=== PATIENT | male | born 1980 | race Caucasian/White ===

== ENCOUNTER 2016-10-21 17:31 | Emergency (ER) | payer SELFPAY ==
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
[2016-10-21] MEDS ORDERED: HYDROCODONE/ACETAMINOPHEN 5-325 MG 6 TAB/DSPK PO PRN (22:11)
[2016-10-21] MEDS ORDERED: DEXAMETHASONE SOD PHOS INJ 10 MG/1 ML VIAL IM ONE (22:12)
[2016-10-22 00:40] VITALS: BP 129/74
== END 2016-10-21 22:50 | disposition home or self-care (01) ==
LOC: ER 17:31
DX: M54.2 Cervicalgia (principal); M25.551 Pain in right hip; W19.XXXA Unspecified fall, initial encounter; F17.210 Nicotine dependence, cigarettes, uncomplicated
CPT/HCPCS: 99284; 96372; 73502; 72125; J1100

== ENCOUNTER 2017-02-26 12:40 | Emergency (ER) | payer OTHER, MEDICAID ==
[2017-02-26] MEDS ORDERED: ONDANSETRON 4 MG TAB.RAPDIS PO ONE (13:16)
[2017-02-26] MEDS ORDERED: LANSOPRAZOLE 30 MG TAB.RAP.DR PO ONE (13:16)
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
[2017-02-26] MEDS ORDERED: NORMAL SALINE 1000 ML 1,000 ML IV ONE ×2 (13:23→15:27)
[2017-02-26] MEDS ORDERED: OXYCODONE-ACETAMINOPHEN 5-325 MG TABLET PO ONE (13:23)
[2017-02-26 13:56] LABS: ABSOLUTE BASOPHILS # (AUTO) 0.1 10^3/uL (0.0-0.2); ABSOLUTE LYMPHOCYTES (AUTO) 2.1 10^3/uL (0.5-4.7); ABSOLUTE MONOCYTES (AUTO) 1.2 10^3/uL (0.1-1.4); ABSOLUTE NEUT (AUTO) 13.5 10^3/uL (1.7-8.2); BASOPHILS % (AUTO) 0.6 % (0-2); HEMATOCRIT 48.2 % (37.9-51.0); HEMOGLOBIN 16.4 g/dL (13.5-17.0); LYMPHOCYTES % (AUTO) 12.6 % (13-45); MEAN CORPUSCULAR HEMOGLOBIN 31.2 pg (27.0-33.4); MEAN CORPUSCULAR HGB CONC 34.1 g/dL (32.0-36.0); MEAN CORPUSCULAR VOLUME 92 fl (80-97); MONOCYTES % (AUTO) 7.1 % (3-13); RED BLOOD COUNT 5.26 10^6/uL (4.35-5.55); SEGMENTED NEUTROPHILS % (AUTO) 79.7 % (42-78); WHITE BLOOD COUNT 16.9 10^3/uL (4.0-10.5)
[2017-02-26 14:02] LABS: APPEARANCE,URINE SLIGHTLY-CLOUDY; BILIRUBIN,URINE NEGATIVE (NEGATIVE); GLUCOSE, URINE NEGATIVE (NEGATIVE); KETONES,URINE NEGATIVE (NEGATIVE); LEUKOCYTE ESTERASE,URINE NEGATIVE (NEGATIVE); NITRITE,URINE NEGATIVE (NEGATIVE); PROTEIN,URINE 100 mg/dL (NEGATIVE); URINE SPECIFIC GRAVITY 1.032; UROBILINOGEN,URINE NEGATIVE mg/dL (<2.0)
[2017-02-26 14:16] LABS: URINE BARBITURATES SCREEN NEGATIVE; URINE METHADONE SCREEN NEGATIVE; URINE OPIATES LOW NEGATIVE; URINE PHENCYCLIDINE SCREEN NEGATIVE
[2017-02-26 14:16] LABS: ALANINE AMINOTRANSFERASE 38 U/L (21-72); ALBUMIN 5.3 g/dL (3.5-5.0); ALKALINE PHOSPHATASE 76 U/L (38-126); ANION GAP 17 (5-19); ASPARTATE AMINO TRANSFERASE 25 U/L (17-59); BILIRUBIN,DIRECT 0.4 mg/dL (0.0-0.4); BILIRUBIN,TOTAL 1.5 mg/dL (0.2-1.3); BLOOD UREA NITROGEN 17 mg/dL (7-20); CALCIUM 10.6 mg/dL (8.4-10.2); CARBON DIOXIDE 26 mmol/L (22-30); CHLORIDE 100 mmol/L (98-107); CREATININE RESULT 1.16 mg/dL (0.52-1.25); GLUCOSE 130 mg/dL (75-110); LIPASE 263.6 U/L (23-300); POTASSIUM 4.1 mmol/L (3.6-5.0); SODIUM 142.8 mmol/L (137-145); TOTAL PROTEIN 8.5 g/dL (6.3-8.2)
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
[2017-02-26] MEDS ORDERED: CLONIDINE HCL 0.1 MG TABLET PO ONE (15:27)
[2017-02-26 16:08] VITALS: BP 124/64
[2017-02-26] MEDS ORDERED: ONDANSETRON ODT 4 MG TAB (6 TAB/DSPK) PO PRN (16:49)
== END 2017-02-26 17:15 | disposition home or self-care (01) ==
LOC: ER 12:40
DX: F11.23 Opioid dependence with withdrawal (principal); F14.10 Cocaine abuse, uncomplicated; G89.4 Chronic pain syndrome; M54.9 Dorsalgia, unspecified; R11.2 Nausea with vomiting, unspecified; R10.31 Right lower quadrant pain; R10.32 Left lower quadrant pain; J45.909 Unspecified asthma, uncomplicated; Z88.0 Allergy status to penicillin; Z88.2 Allergy status to sulfonamides; Z88.1 Allergy status to other antibiotic agents; Z88.5 Allergy status to narcotic agent; Z88.8 Allergy status to other drugs, medicaments and biological substances; Z87.19 Personal history of other diseases of the digestive system; Z90.49 Acquired absence of other specified parts of digestive tract
CPT/HCPCS: 99284; 36415; 87086; 83690; 85025; 85652; 80053; 81001; 80307; S0119; J7030

== ENCOUNTER 2017-06-03 17:32 | Emergency (ER) | payer MEDICAID, OTHER ==
[2017-06-03] MEDS ORDERED: NORMAL SALINE 1000 ML 1,000 ML IV ONE (18:10)
[2017-06-03] MEDS ORDERED: LORAZEPAM INJ 2 MG/1 ML VIAL IV ONE (18:11)
[2017-06-03] MEDS ORDERED: CLONIDINE HCL 0.2 MG TABLET PO ONE (18:11)
--- NOTE | 2017-06-03 18:13 | ER Document Report ---
ED Medical Screen (RME) - General Chief Complaint: Drug Abuse Stated Complaint: WITHDRAWAL/HEROINE Time Seen by Provider: 06/03/17 18:08 Mode of Arrival: Wheelchair Information source: Patient Notes: 36-year-old male heavy heroin abuser presents with withdrawal symptoms of 24 hours patient admits to sweating body aches Patient here with mobile crisis I have greeted and performed a rapid initial assessment of this patient. A comprehensive ED assessment and evaluation of the patient, analysis of test results and completion of the medical decision making process will be conducted by additional ED providers. PHYSICAL EXAMINATION: GENERAL: Ill-appearing male in mild acute distress HEAD: Atraumatic, normocephalic. EYES: Pupils equal round extraocular movements intact, conjunctiva are normal. ENT: Nares patent NECK: Normal range of motion LUNGS: No respiratory distress Musculoskeletal: Normal range of motion NEUROLOGICAL: Normal speech, normal gait. PSYCH: Tearful and anxious SKIN: Diaphoretic TRAVEL OUTSIDE OF THE [place] IN LAST 30 DAYS: No - Related Data Allergies/Adverse Reactions: naproxen Allergy (Verified 06/03/17 17:55) Penicillins Allergy (Verified 06/03/17 17:55) Sulfa (Sulfonamide Antibiotics) Allergy (Verified 06/03/17 17:55) sulfamethoxazole [From Bactrim] Allergy (Verified 06/03/17 17:55) tramadol HCl [From Ultram] Allergy (Verified 06/03/17 17:55) trimethoprim [From Bactrim] Allergy (Verified 06/03/17 17:55) Past Medical History - Social History Chew tobacco use (# tins/day): No Frequency of alcohol use: None Drug Abuse: Cocaine, Heroin Family history: Hypertension - Past Medical History Cardiac Medical History: Denies: Hx Coronary Artery Disease, Hx Heart Attack, Hx Hypertension Pulmonary Medical History: Reports: Hx Asthma Denies: Hx Bronchitis, Hx COPD, Hx Pneumonia Neurological Medical History: Denies: Hx Cerebrovascular Accident, Hx Seizures Renal/ Medical History: Denies: Hx Peritoneal Dialysis GI Medical History: Reports: Hx Diverticulitis, Hx Gastroesophageal Reflux Disease, Hx Ulcerative Colitis, Hx Colonoscopy, Hx Endoscopy Musculoskeltal Medical History: Reports Hx Arthritis, Reports Hx Musculoskeletal Deformity - Chronic back pain and herniated disc according to the patient, Reports Hx Musculoskeletal Trauma Psychiatric Medical History: Reports: Hx Depression Past Surgical History: Reports: Hx Abdominal Surgery - L inguinal hernia repair , Hx Appendectomy, Hx Inguinal Hernia - Left - Immunizations Immunizations up to date: Yes Hx Diphtheria, Pertussis, Tetanus Vaccination: Yes - 2011 Physical Exam - Vital signs Vitals: Temp Resp BP Pulse Ox 98.4 F 22 H 126/82 H 96 06/03/17 17:59 06/03/17 17:59 06/03/17 17:59 06/03/17 17:59 Course - Vital Signs Vital signs: Temp Pulse Resp BP Pulse Ox 98.4 F 22 H 126/82 H 96 06/03/17 17:59 06/03/17 17:59 06/03/17 17:59 06/03/17 17:59
[2017-06-03 19:00] LABS: ABSOLUTE BASOPHILS # (AUTO) 0.1 10^3/uL (0.0-0.2); ABSOLUTE EOSINOPHILS # (AUTO) 0.1 10^3/uL (0.0-0.6); ABSOLUTE LYMPHOCYTES (AUTO) 2.8 10^3/uL (0.5-4.7); ABSOLUTE MONOCYTES (AUTO) 0.7 10^3/uL (0.1-1.4); ABSOLUTE NEUT (AUTO) 6.8 10^3/uL (1.7-8.2); BASOPHILS % (AUTO) 0.9 % (0-2); EOSINOPHILS % (AUTO) 1.2 % (0-6); HEMATOCRIT 49.5 % (37.9-51.0); HEMOGLOBIN 17.2 g/dL (13.5-17.0); HGB HCT DIFFERENCE 2.1; LYMPHOCYTES % (AUTO) 26.3 % (13-45); MEAN CORPUSCULAR HGB CONC 34.8 g/dL (32.0-36.0); MEAN CORPUSCULAR VOLUME 92 fl (80-97); MONOCYTES % (AUTO) 7.1 % (3-13); RED BLOOD COUNT 5.39 10^6/uL (4.35-5.55); RED CELL DISTRIBUTION WIDTH 13.1 % (11.5-14.0); SEGMENTED NEUTROPHILS % (AUTO) 64.5 % (42-78); WHITE BLOOD COUNT 10.5 10^3/uL (4.0-10.5)
[2017-06-03 19:03] LABS: APPEARANCE,URINE SLIGHTLY-CLOUDY; BILIRUBIN,URINE NEGATIVE (NEGATIVE); GLUCOSE, URINE NEGATIVE (NEGATIVE); KETONES,URINE NEGATIVE (NEGATIVE); LEUKOCYTE ESTERASE,URINE NEGATIVE (NEGATIVE); NITRITE,URINE NEGATIVE (NEGATIVE); PROTEIN,URINE NEGATIVE (NEGATIVE); URINE SPECIFIC GRAVITY 1.026; UROBILINOGEN,URINE NEGATIVE mg/dL (<2.0)
[2017-06-03 19:17] LABS: ALANINE AMINOTRANSFERASE 40 U/L (21-72); ALBUMIN 5.3 g/dL (3.5-5.0); ALKALINE PHOSPHATASE 82 U/L (38-126); ANION GAP 18 (5-19); ASPARTATE AMINO TRANSFERASE 34 U/L (17-59); BILIRUBIN,DIRECT 0.4 mg/dL (0.0-0.4); BILIRUBIN,TOTAL 1.1 mg/dL (0.2-1.3); BLOOD UREA NITROGEN 12 mg/dL (7-20); CALCIUM 10.3 mg/dL (8.4-10.2); CARBON DIOXIDE 25 mmol/L (22-30); CHLORIDE 101 mmol/L (98-107); GLUCOSE 91 mg/dL (75-110); POTASSIUM 3.8 mmol/L (3.6-5.0); SODIUM 143.8 mmol/L (137-145); TOTAL PROTEIN 9.1 g/dL (6.3-8.2)
[2017-06-03 19:18] LABS: ALCOHOL < 10 mg/dL (NONE DETECTED)
[2017-06-03] MEDS ORDERED: GABAPENTIN 300 MG CAPSULE PO ONE (19:20)
--- NOTE | 2017-06-03 19:23 | ER Document Report ---
ED General - General Chief Complaint: Drug Abuse Stated Complaint: WITHDRAWAL/HEROINE Time Seen by Provider: 06/03/17 18:08 Mode of Arrival: Wheelchair Notes: Patient is a 36-year-old male with past medical history of polysubstance abuse who presents requesting assistance with coming off heroin. States his last year was 24 hours ago. He presents complaining of diffuse body pain, abdominal pain, nausea, vomiting and tremulousness. Nothing improves or worsens his symptoms. States he has never gone through heroin withdrawal in the past to this degree of severity. He has not seen his primary care doctor regarding today's concerns. He came to the emergency department because he was afraid that he would use heroin if he did not get help due to the severity of his withdrawal symptoms. TRAVEL OUTSIDE OF THE [place] IN LAST 30 DAYS: No - Related Data Allergies/Adverse Reactions: naproxen Allergy (Verified 06/03/17 17:55) Penicillins Allergy (Verified 06/03/17 17:55) Sulfa (Sulfonamide Antibiotics) Allergy (Verified 06/03/17 17:55) sulfamethoxazole [From Bactrim] Allergy (Verified 06/03/17 17:55) tramadol HCl [From Ultram] Allergy (Verified 06/03/17 17:55) trimethoprim [From Bactrim] Allergy (Verified 06/03/17 17:55) Past Medical History - General Information source: Patient - Social History Smoking Status: Current Every Day Smoker Chew tobacco use (# tins/day): No Frequency of alcohol use: None Drug Abuse: Cocaine, Heroin Family History: Reviewed & Not Pertinent Patient has suicidal ideation: No Patient has homicidal ideation: No - Past Medical History Cardiac Medical History: Denies: Hx Coronary Artery Disease, Hx Heart Attack, Hx Hypertension Pulmonary Medical History: Reports: Hx Asthma Denies: Hx Bronchitis, Hx COPD, Hx Pneumonia Neurological Medical History: Denies: Hx Cerebrovascular Accident, Hx Seizures Renal/ Medical History: Denies: Hx Peritoneal Dialysis GI Medical History: Reports: Hx Diverticulitis, Hx Gastroesophageal Reflux Disease, Hx Ulcerative Colitis, Hx Colonoscopy, Hx Endoscopy Musculoskeltal Medical History: Reports Hx Arthritis, Reports Hx Musculoskeletal Deformity - Chronic back pain and herniated disc according to the patient, Reports Hx Musculoskeletal Trauma Psychiatric Medical History: Reports: Hx Depression Past Surgical History: Reports: Hx Abdominal Surgery - L inguinal hernia repair , Hx Appendectomy, Hx Inguinal Hernia - Left - Immunizations Immunizations up to date: Yes Hx Diphtheria, Pertussis, Tetanus Vaccination: Yes - 2011 Review of Systems - Review of Systems Notes: Constitutional: Negative for fever. HENT: Negative for sore throat. Eyes: Negative for visual changes. Cardiovascular: Negative for chest pain. Respiratory: Negative for shortness of breath. Gastrointestinal: Positive for abdominal pain and vomiting Genitourinary: Negative for dysuria. Musculoskeletal: Negative for back pain. Skin: Negative for rash. Neurological: Negative for headaches, weakness or numbness. 10 point ROS negative except as marked above and in HPI. Physical Exam - Vital signs Vitals: Temp Resp BP Pulse Ox 98.4 F 22 H 126/82 H 96 06/03/17 17:59 06/03/17 17:59 06/03/17 17:59 06/03/17 17:59 Interpretation: Normal Notes: PHYSICAL EXAMINATION: GENERAL: Appears uncomfortable but no acute distress HEAD: Atraumatic, normocephalic. EYES: Pupils equal round and reactive to light, extraocular movements intact, sclera anicteric, conjunctiva are normal. ENT: nares patent, oropharynx clear without exudates. Moist mucous membranes. NECK: Normal range of motion, supple without lymphadenopathy LUNGS: Breath sounds clear to auscultation bilaterally and equal. No wheezes rales or rhonchi. HEART: Regular rate and rhythm without murmurs ABDOMEN: Soft, nontender, normoactive bowel sounds. No guarding, no rebound. No masses appreciated. EXTREMITIES: Normal range of motion, no pitting or edema. No cyanosis. NEUROLOGICAL: No focal neurological deficits. Moves all extremities spontaneously and on command. PSYCH: Anxious SKIN: Warm, Dry, normal turgor, no rashes or lesions noted. Course - Re-evaluation Re-evalutation: 06/03/17 19:20 Patient presents 24 hours after his last use of heroin in acute withdrawals. His withdrawal profile is clinically consistent with this history as he reports nausea, vomiting, abdominal cramping, diffuse body pain, flulike symptoms and confusion. Patient does admit to suicidal ideation without a specific plan but states "if you let me go I know I am going to go ". Denies any prior psychiatric history or attempts of suicide. However, given patient's report that he seriously believes that he may do something to harm himself if he is discharged due to his withdrawal profile, I will keep him here in the emergency department although not under involuntary commitment as he has no specific plan and waffles on whether or not he is truly suicidal. I will provide clonidine, gabapentin, and Zofran for withdrawal. I have explicitly informed this patient that he will not receive narcotics for his withdrawals while he is here in the emergency department. - Vital Signs Vital signs: Temp Pulse Resp BP Pulse Ox 98.4 F 22 H 126/82 H 96 06/03/17 17:59 06/03/17 17:59 06/03/17 17:59 06/03/17 17:59 - Laboratory Result Diagrams: 06/03/17 18:40 06/03/17 18:40 Laboratory results interpreted by me: 06/03/17 06/03/17 18:40 18:40 Hgb 17.2 H Calcium 10.3 H Total Protein 9.1 H Albumin 5.3 H Salicylates < 1.0 L Acetaminophen < 10 L - EKG Interpretation by Me Additional EKG results interpreted by me: 06/04/17 03:40 Normal sinus rhythm. Rate 76. No ST elevations or depressions. QTC is 437. Discharge - Discharge Clinical Impression: Opiate withdrawal, Suicidal ideation Condition: Fair Disposition: PSYCH HOSP/UNIT Referrals: TAM TORRES MD [Primary Care Provider] - Follow up as needed
[2017-06-03 19:24] LABS: URINE BARBITURATES SCREEN NEGATIVE; URINE METHADONE SCREEN NEGATIVE; URINE OPIATES LOW UNCONFIRMED POSITIVE; URINE PHENCYCLIDINE SCREEN NEGATIVE
--- NOTE | 2017-06-04 08:13 | EKG REPORT ---
SEVERITY:- NORMAL ECG - SINUS RHYTHM : Confirmed by: Gordon Posadas MD 04-Jun-2017 08:12:34
[2017-06-04] MEDS ORDERED: NICOTINE 21 MG/24 HR PATCH.TD24 TD SCH (10:15)
[2017-06-04] MEDS ORDERED: ONDANSETRON HCL INJ/PF 4 MG/2 ML SDV IV ONE (10:44)
[2017-06-04] MEDS ORDERED: KETOROLAC TROMETHAMINE INJ/PF 30 MG/1 ML SDV IV ONE (10:44)
[2017-06-04] MEDS ORDERED: NORMAL SALINE 1000 ML 1,000 ML IV PRN ×2 (10:44→12:11)
[2017-06-04] MEDS ORDERED: NICOTINE 21 MG/24 HR PATCH.TD24 TD ONE (11:00)
--- NOTE | 2017-06-04 11:15 | ER Document Report ---
Doctor's Note Notes: 06/04/17 11:14 Patient is resting on stretcher, reports feeling severe abdominal and diffuse body cramps at this point in time as well as nausea, typical symptoms of withdrawal from opiates, he is requesting nonnarcotic medications to alleviate symptoms, he is also requesting to be able to outside for a walk, since patient is a voluntary here, I did arrange for "environmental therapy", once he returns back to the building from his walk, we will place an IV and give him IV fluids, Zofran and Toradol in hopes to alleviate some of his withdrawal symptoms, his 2 sisters are at bedside who appear to be quite supportive of assisting him with opiate detox and withdrawal
[2017-06-04] MEDS ORDERED: METOCLOPRAMIDE HCL INJ/PF 10 MG/2 ML SDV IV ONE ×2 (12:11→15:23)
[2017-06-04] MEDS ORDERED: CLONIDINE HCL 0.1 MG TABLET PO ONE (12:11)
[2017-06-04] MEDS ORDERED: DIPHENHYDRAMINE HCL 50 MG/ML VIAL IV ONE ×2 (12:11→15:23)
--- NOTE | 2017-06-04 15:05 | ER Document Report ---
ED Psych Disorder / Suicide - General Mode of Arrival: Wheelchair Information source: Patient TRAVEL OUTSIDE OF THE [place] IN LAST 30 DAYS: No <ADONAY ELLIOTT - Last Filed: 06/04/17 14:57> <MEENA KAUFMAN - Last Filed: 06/05/17 09:33> - General Chief Complaint: Drug Abuse Stated Complaint: WITHDRAWAL/HEROINE Time Seen by Provider: 06/03/17 18:08 - HPI Notes: Patient is a 36-year-old male with past medical history of polysubstance abuse who presents requesting assistance with coming off heroin. States his last year was 24 hours ago. He came to the emergency department because he was afraid that he would use heroin if he did not get help due to the severity of his withdrawal symptoms. Patient disclosed that he needs assistance in finding placement for detox. He disclosed that he uses heroin. He continued to state that he will if he has to stay at [facility] because [facility] does not prescribe Suboxone and he needs something to help with the pain. Patient is alert and orientated to person, place, time and circumstance. Mood is dysphoric with flat affect. Patient is currently demonstrating symptoms of withdrawal i.e. vomiting. Patient denies homicidal and suicidal ideation. Delusions were absent and behavior is congruent with an intact reality based presentation (i.e. organized linear rational thinking). Eye contact was well- maintained. Intellectual abilities appear to be within the average range. Attention and concentration were fair. Insight, judgment, impulse control appear to be historically poor due to polysubstance abuse. Polysubstance abuse per history provided by patient Impression\\plan: Patient is considered psychiatrically clear for discharge. Patient does not meet IVC criteria per [place] GS 122C. Patient denies suicidal and homicidal ideation. Delusions were absent and behavior is congruent with an intact reality based presentation (i.e. organized, linear, rational thinking). [facility] and is working with patient for placement for substance abuse treatment; they will pick him up from [facility] ED upon discharge.Dr. Kaufman was consulted on the care and management of this patient; attending physician is in agreement with recommendations and disposition. ( ADONAY ELLIOTT) 2nd sentence of narrative should read "States his last use was 24 hours ago." ( MEENA KAUFMAN) - Related Data Allergies/Adverse Reactions: naproxen Allergy (Verified 06/03/17 17:55) Penicillins Allergy (Verified 06/03/17 17:55) Sulfa (Sulfonamide Antibiotics) Allergy (Verified 06/03/17 17:55) sulfamethoxazole [From Bactrim] Allergy (Verified 06/03/17 17:55) tramadol HCl [From Ultram] Allergy (Verified 06/03/17 17:55) trimethoprim [From Bactrim] Allergy (Verified 06/03/17 17:55) Home Medications: Current Home Medications Oxycodone HCl/Acetaminophen [Percocet 10-325 Mg Tablet] 1 tab PO Q6HP PRN [History] Past Medical History - General Information source: Patient - Social History Smoking Status: Current Every Day Smoker Chew tobacco use (# tins/day): No Frequency of alcohol use: None Drug Abuse: Cocaine, Heroin Family History: Reviewed & Not Pertinent Patient has suicidal ideation: No Patient has homicidal ideation: No - Past Medical History Cardiac Medical History: Denies: Hx Coronary Artery Disease, Hx Heart Attack, Hx Hypertension Pulmonary Medical History: Reports: Hx Asthma Denies: Hx Bronchitis, Hx COPD, Hx Pneumonia Neurological Medical History: Denies: Hx Cerebrovascular Accident, Hx Seizures Renal/ Medical History: Denies: Hx Peritoneal Dialysis GI Medical History: Reports: Hx Diverticulitis, Hx Gastroesophageal Reflux Disease, Hx Ulcerative Colitis, Hx Colonoscopy, Hx Endoscopy Musculoskeltal Medical History: Reports Hx Arthritis, Reports Hx Musculoskeletal Deformity - Chronic back pain and herniated disc according to the patient, Reports Hx Musculoskeletal Trauma Psychiatric Medical History: Reports: Hx Depression Past Surgical History: Reports: Hx Abdominal Surgery - L inguinal hernia repair , Hx Appendectomy, Hx Inguinal Hernia - Left - Immunizations Immunizations up to date: Yes Hx Diphtheria, Pertussis, Tetanus Vaccination: Yes - 2011 <ADONAY ELLIOTT - Last Filed: 06/04/17 14:57> - Vital signs Vitals: Temp Resp BP Pulse Ox 98.4 F 22 H 126/82 H 96 06/03/17 17:59 06/03/17 17:59 06/03/17 17:59 06/03/17 17:59 Course - Laboratory Result Diagrams: 06/03/17 18:40 06/03/17 18:40 <ADONAY ELLIOTT - Last Filed: 06/04/17 14:57> - Laboratory Result Diagrams: 06/03/17 18:40 06/03/17 18:40 <MEENA KAUFMAN - Last Filed: 06/05/17 09:33> - Vital Signs Vital signs: Temp Pulse Resp BP Pulse Ox 98 F 50 L 16 154/75 H 98 06/04/17 15:15 06/04/17 15:15 06/04/17 15:15 06/04/17 16:00 06/04/17 15:15 - Laboratory Laboratory results interpreted by me: 06/03/17 06/03/17 18:40 18:40 Hgb 17.2 H Calcium 10.3 H Total Protein 9.1 H Albumin 5.3 H Salicylates < 1.0 L Acetaminophen < 10 L Discharge <ADONAY ELLIOTT - Last Filed: 06/04/17 14:57> <MEENA KAUFMAN - Last Filed: 06/05/17 09:33> - Discharge Clinical Impression: Opiate withdrawal Clinical Impression: (Ruled Out): Suicidal ideation Condition: Stable Disposition: HOME, SELF-CARE Additional Instructions: COCAINE ABUSE: Cocaine causes many dangerous medical problems. Problems can occur even with "usual" amounts. Cocaine affects judgement, creating a sense of invulnerability. Cocaine users often make bad decisions that seem "great" at the time. Most cocaine users eventually will be hurt by bad job performance, damaged personal relations, crime, and unsafe sexual practices. Toxic effects of cocaine can include seizures, hallucinations, delusions, high blood pressure, heart damage, or sudden . There's always the risk of a "bad batch." But heart attacks, brain hemorrhages, or cardiac arrest can occur unpredictably even with "normal" use. Injection of cocaine is risky for abscesses, endocarditis (heart infection) , pneumonia, and AIDS. Withdrawal from cocaine often causes anxiety and drug cravings. Some users become paranoid and psychotic. Many treatment programs are available, but you must make the decision to quit. Medication can be prescribed to control the symptoms of cocaine toxicity (beta blockers or benzodiazepines). Withdrawal symptoms may require tranquilizers. NARCOTIC / OPIOD ABUSE: Narcotics and opiods are pain-relieving drugs that are often abused. They are addicting. Narcotics cause euphoria, but it often takes increasing amounts to "feel good" and avoid withdrawal symptoms. Overdose of narcotics causes small pupils, coma, and decreased breathing. It's a common cause of . Purity of street narcotics is unpredictable. Injection of narcotics is risky for abscesses, endocarditis (heart infection), pneumonia, and AIDS. Withdrawal from narcotics causes goose bumps, watery mouth, sweating, nasal congestion, muscle aches, abdominal cramps, vomiting, and diarrhea. There 's often restlessness and confusion. Treatment programs are available, but you must make the decision to quit. Medication (such as clonidine) can be prescribed to control the symptoms of withdrawal. AMPHETAMINE / METHAMPHETAMINE ABUSE: Amphetamines are addicting stimulants. Amphetamines overstimulate the nervous system and give a false feeling of power and mastery. These drugs may be obtained as prescription pills for weight loss, narcolepsy, or attention- deficit disorder. More often they're bought as an illegal street drug, methamphetamine (crank, crystal, speed). Using amphetamines repeatedly can lead to serious medical problems including malnutrition, severe depression, and paranoia. It can take increasing amounts to feel good. Eventually, there will be a "burn out." When you go off amphetamines there is a period of depression that may last for weeks or even months. High doses of amphetamines can cause seizures, confusion, hallucinations, delusions, high blood pressure, muscle damage, heart damage, or sudden . Many times these deadly complications occur even with "normal" doses. Injection of amphetamines is risky for developing abscesses, endocarditis ( heart infection), pneumonia, and AIDS. Withdrawal from amphetamines often causes anxiety, depression, and drug cravings. Some users become paranoid and psychotic. There may be cramps, nausea , and vomiting. Many treatment programs are available, but you must make the decision to quit. Medication can be prescribed to control the symptoms of amphetamine toxicity (beta blockers or benzodiazepines). Withdrawal symptoms may require tranquilizers. FOLLOW-UP CARE: Please [facility] with [facility] for your [facility] abuse treatment upon discharge. If you experience worsening or a significant change in your symptoms, notify the physician immediately or return to the Emergency Department at any time for re-evaluation. Referrals: TAM TORRES MD [Primary Care Provider] - Follow up as needed [facility] [Outside] - 06/04/17
[2017-06-04] MEDS ORDERED: ONDANSETRON 4 MG TAB.RAPDIS SL ONE (15:21)
[2017-06-04 16:00] VITALS: BP 154/75
[2017-06-05] MEDS ORDERED: NICOTINE 21 MG/24 HR PATCH.TD24 TD SCH (10:00)
== END 2017-06-04 16:05 | disposition home or self-care (01) ==
LOC: ER 17:32
DX: F11.23 Opioid dependence with withdrawal (principal); M79.1 Myalgia; R11.0 Nausea; R61 Generalized hyperhidrosis; R45.851 Suicidal ideations; F17.200 Nicotine dependence, unspecified, uncomplicated; Z88.0 Allergy status to penicillin; Z88.2 Allergy status to sulfonamides
CPT/HCPCS: 93005; 99285; 96361; 96374; 36415; 80307 ×4; 85025; 80053; 81001; 93010; J1200; S0119; J1885; J2765; J2060; J2405; J7030 ×2

== ENCOUNTER 2017-07-28 12:54 | Emergency (ER) | payer MEDICAID, OTHER ==
[2017-07-28 13:18] VITALS: BP 133/79
[2017-07-28] MEDS ORDERED: DOXYCYCLINE HYCLATE 100 MG TABLET PO ONE (14:39)
--- NOTE | 2017-07-28 14:44 | ER Document Report ---
ED Skin Rash/Insect Bite/Abscs - General Chief Complaint: Abscess Stated Complaint: GROIN PAIN Time Seen by Provider: 07/28/17 14:27 Mode of Arrival: Ambulatory Information source: Patient Notes: 36-year-old male presents to ED for complaint of abscess on his left testicle. He has a history of abscess but denies any history of MRSA. He states he has felt this abscess for about 3-4 days. States he usually soaks in Epsom salt but this time it did not come to ahead. TRAVEL OUTSIDE OF THE [place] IN LAST 30 DAYS: No - HPI Patient complains to provider of: Tender/swollen area Onset: Other - 4 days Onset/Duration: Gradual Quality of pain: Sharp Severity: Moderate Pain Level: 4 Skin Character: Abscess Quality of rash: Painful Identify cause: No Exacerbated by: Movement Relieved by: Denies Similar symptoms previously: Yes Recently seen / treated by doctor: No - Related Data Allergies/Adverse Reactions: naproxen Allergy (Verified 06/03/17 17:55) Penicillins Allergy (Verified 06/03/17 17:55) Sulfa (Sulfonamide Antibiotics) Allergy (Verified 06/03/17 17:55) sulfamethoxazole [From Bactrim] Allergy (Verified 06/03/17 17:55) tramadol HCl [From Ultram] Allergy (Verified 06/03/17 17:55) trimethoprim [From Bactrim] Allergy (Verified 06/03/17 17:55) Past Medical History - General Information source: Patient - Social History Smoking Status: Current Every Day Smoker Cigarette use (# per day): Yes - Pack per day Chew tobacco use (# tins/day): No Smoking Education Provided: Yes - Less than 2 minutes Frequency of alcohol use: None Drug Abuse: None Occupation: Unemployed Family History: Arthritis, CAD, DM, Hyperlipidemia, Hypertension, Malignancy. denies: COPD, CVA, Thyroid Disfunction Patient has suicidal ideation: No Patient has homicidal ideation: No - Past Medical History Cardiac Medical History: Reports: None Pulmonary Medical History: Reports: Hx Asthma EENT Medical History: Reports: None Neurological Medical History: Reports: None Endocrine Medical History: Reports: None Renal/ Medical History: Reports: None Malignancy Medical History: Reports None GI Medical History: Reports: Hx Diverticulitis, Hx Gastroesophageal Reflux Disease, Hx Ulcerative Colitis, Hx Colonoscopy, Hx Endoscopy Musculoskeltal Medical History: Reports Hx Arthritis, Reports Hx Musculoskeletal Deformity - Chronic back pain and herniated disc according to the patient, Reports Hx Musculoskeletal Trauma Skin Medical History: Reports None Psychiatric Medical History: Reports: Hx Depression Traumatic Medical History: Reports: None Infectious Medical History: Reports: None Past Surgical History: Reports: Hx Appendectomy, Hx Inguinal Hernia - Left - Immunizations Immunizations up to date: Yes Hx Diphtheria, Pertussis, Tetanus Vaccination: Yes - 2011 Review of Systems - Review of Systems Constitutional: No symptoms reported EENT: No symptoms reported Cardiovascular: No symptoms reported Respiratory: No symptoms reported Gastrointestinal: No symptoms reported Genitourinary: No symptoms reported Male Genitourinary: No symptoms reported Musculoskeletal: No symptoms reported Skin: Other - Abscess left groin Hematologic/Lymphatic: No symptoms reported Neurological/Psychological: No symptoms reported -: Yes All other systems reviewed and negative Physical Exam - Vital signs Vitals: Temp Pulse Resp BP Pulse Ox 98.0 F 60 18 133/79 H 100 07/28/17 13:16 07/28/17 13:16 07/28/17 13:16 07/28/17 13:16 07/28/17 13:16 Interpretation: Normal - General General appearance: Appears well, Alert - HEENT Head: Normocephalic, Atraumatic Eyes: Normal Pupils: PERRL - Respiratory Respiratory status: No respiratory distress Chest status: Nontender Breath sounds: Normal Chest palpation: Normal - Cardiovascular Rhythm: Regular Heart sounds: Normal auscultation Murmur: No - Abdominal Inspection: Normal Distension: No distension Bowel sounds: Normal Tenderness: Nontender Organomegaly: No organomegaly - Genitourinary Tenderness: Other - Abscess left testicle/groin Cremasteric reflex: Normal Scrotum: Normal - Back Back: Normal, Nontender - Extremities General upper extremity: Normal inspection, Nontender, Normal color, Normal ROM , Normal temperature General lower extremity: Normal inspection, Nontender, Normal color, Normal ROM , Normal temperature, Normal weight bearing. No: Leti's sign - Neurological Neuro grossly intact: Yes Cognition: Normal Orientation: AAOx4 Angus Coma Scale Eye Opening: Spontaneous Angus Coma Scale Verbal: Oriented Angus Coma Scale Motor: Obeys Commands Angus Coma Scale Total: 15 Speech: Normal Motor strength normal: LUE, RUE, LLE, RLE Sensory: Normal - Psychological Associated symptoms: Normal affect, Normal mood - Skin Skin Temperature: Warm Skin Moisture: Dry Skin Color: Normal Skin irregularity: Abscess Location of irregularity: Other - Left groin/testicle Irregularity with: Swelling, Tenderness Course - Vital Signs Vital signs: Temp Pulse Resp BP Pulse Ox 98.0 F 60 18 133/79 H 100 07/28/17 13:16 07/28/17 13:16 07/28/17 13:16 07/28/17 13:16 07/28/17 13:16 Procedures - Incision and Drainage Left Groin Time completed: 14:45 Type: Simple Anesthetic type: Other - None mL's of anesthetic: 0 Blade size: Other - 18-gauge needle I&D procedure: Betadine prep applied, Sterile dressing applied Incision Method: Incision made with needle Amount/type of drainage: Moderate amount of purulent drainage Discharge - Discharge Clinical Impression: Abscess Condition: Stable Disposition: HOME, SELF-CARE Instructions: Family Physicians / Practices Additional Instructions: ABSCESS: You have an abscess (boil). This a pus-forming infection, usually due to staph. Some boils may be left to drain on their own, but most require lancing. From the time the tender lump first appears, it may be three or four days before the abscess is ready to frank. Local heat and rest help at this stage of treatment. An antibiotic may prevent spread of the infection. Once the abscess is opened, packing may be placed into it. This is done so pus is not sealed inside by premature closure of the cavity. The packing will be removed at your follow-up visit or you may be advised to remove it yourself at home. Sometimes this packing must be replaced a few times during healing. The wound will heal with surprisingly little scar. Depending on the size and location of an abscess, healing can take one to four weeks. You may shower and wash the area around the incision site two or three times a day. Antibiotics may be prescribed, but are usually not necessary after an abscess has been drained. If you develop fever, chills, worsening pain, or increasing swelling in the area, call the doctor or return immediately. POST INCISION AND DRAINAGE: You have had an incision made to allow drainage of an abscess. The incision must remain open so that pus and debris can drain from the wound. If the abscess cavity is large, packing is placed. This keeps the tissues from collapsing and trapping pus inside, while the body shrinks the cavity. The packing may need to be replaced every day or two. The physician will instruct you on the packing. Keep a bulky dressing over the area. Replace it if it becomes saturated with blood or pus. Do not disturb the packing (if present). You may shower and cleanse the area with gentle soap and warm water two or three times a day. Local warmth may be soothing, and may promote faster healing. Return if you develop high fever or chills, or if you note spreading redness, increasing swelling, or increasing tenderness. DOXYCYCLINE: Doxycycline (Vibramycin, Doryx) is an antibiotic of the tetracycline family. This type of drug is useful for infections of the respiratory tract and genital tract, and is sometimes used for intestinal infections. Unlike most tetracyclines, doxycycline can be taken with food. It is longer acting, and (usually) less prone to side effects than regular tetracycline. Tetracycline antibiotics can stain immature teeth and SHOULD NOT BE TAKEN BY CHILDREN, NURSING MOTHERS, OR WOMEN. Tetracyclines can make you more prone to sunburn. Abdominal cramping, nausea, and diarrhea are occasional side effects. Women may experience vaginal yeast infections. Call the doctor at once if you develop hives, itching, shortness of breath , or lightheadedness. Epsom Salt Soaks Soak the wound area in a container of warm epsom salt water. If you can't get the wound area into a bucket or [place], use a folded towel soaked in the epsom salt solution and apply to the area. Use clean hot tap water (about the temperature of a very warm bath), mixing in about one (1) teaspoon for every pint of water. Two gallon --> 16 teaspoons Epsom Salts One gallon --> 8 teaspoons Epsom Salts Two quarts --> 4 teaspoons Epsom Salts One quart --> 2 teaspoons Epsom Salts Soak the wound for about 20 minutes while gently moving it around in the water. Repeat this four (4) times a day. FOLLOW-UP CARE: Most simple abscesses will not require a follow up visit. If you had packing placed in the abscess, remove it as instructed by the physician. If you have been referred to a physician for follow-up care, call the physicians office for an appointment as you were instructed or within the next two days. If you experience worsening or a significant change in your symptoms, return to the Emergency Department at any time for re-evaluation. Prescriptions: Doxycycline Hyclate 100 mg PO BID #20 tablet Forms: Elevated Blood Pressure, Smoking Cessation Education
== END 2017-07-28 14:57 | disposition home or self-care (01) ==
LOC: ER 12:54
PROC: 0H9AXZZ Drainage of Inguinal Skin, External Approach (ICD-10-PCS; principal; 2017-07-28)
DX: L02.214 Cutaneous abscess of groin (principal); F17.210 Nicotine dependence, cigarettes, uncomplicated; Z88.8 Allergy status to other drugs, medicaments and biological substances; Z88.0 Allergy status to penicillin; Z88.2 Allergy status to sulfonamides; Z88.1 Allergy status to other antibiotic agents; Z88.5 Allergy status to narcotic agent; Z71.6 Tobacco abuse counseling
CPT/HCPCS: 87070; 87186; 87205; 99283

== ENCOUNTER 2017-08-13 11:46 | Emergency (ER) | payer SELFPAY ==
[2017-08-13] MEDS ORDERED: ONDANSETRON HCL INJ/PF 4 MG/2 ML SDV IV ONE ×2 (12:19→14:20)
[2017-08-13] MEDS ORDERED: NORMAL SALINE 1000 ML 1,000 ML IV ONE (12:19)
[2017-08-13] MEDS ORDERED: MORPHINE SULFATE 10 MG/ML INJ IV ONE (12:20)
--- NOTE | 2017-08-13 12:21 | ER Document Report ---
ED Medical Screen (RME) - General Chief Complaint: Abdominal Pain Stated Complaint: ABDOMINAL PAIN Time Seen by Provider: 08/13/17 12:18 Notes: Patient presents with severe abdominal pain nausea vomiting, diarrhea. He states he has a history of ulcerative colitis. He states he normally gets Dilaudid for the pain. TRAVEL OUTSIDE OF THE [place] IN LAST 30 DAYS: No - Related Data Allergies/Adverse Reactions: naproxen Allergy (Verified 08/13/17 11:52) Penicillins Allergy (Verified 08/13/17 11:52) Sulfa (Sulfonamide Antibiotics) Allergy (Verified 08/13/17 11:52) sulfamethoxazole [From Bactrim] Allergy (Verified 08/13/17 11:52) tramadol HCl [From Ultram] Allergy (Verified 08/13/17 11:52) trimethoprim [From Bactrim] Allergy (Verified 08/13/17 11:52) Past Medical History - Social History Chew tobacco use (# tins/day): No Frequency of alcohol use: Rare Drug Abuse: Marijuana Family history: Hypertension - Past Medical History Cardiac Medical History: Denies: Hx Coronary Artery Disease, Hx Heart Attack, Hx Hypertension Pulmonary Medical History: Reports: Hx Asthma Denies: Hx Bronchitis, Hx COPD, Hx Pneumonia Neurological Medical History: Denies: Hx Cerebrovascular Accident, Hx Seizures Renal/ Medical History: Denies: Hx Peritoneal Dialysis GI Medical History: Reports: Hx Diverticulitis, Hx Gastroesophageal Reflux Disease, Hx Ulcerative Colitis, Hx Colonoscopy, Hx Endoscopy Musculoskeltal Medical History: Reports Hx Arthritis, Reports Hx Musculoskeletal Deformity - Chronic back pain and herniated disc according to the patient, Reports Hx Musculoskeletal Trauma Psychiatric Medical History: Reports: Hx Depression Past Surgical History: Reports: Hx Abdominal Surgery - L inguinal hernia repair , Hx Appendectomy, Hx Inguinal Hernia - Left - Immunizations Immunizations up to date: Yes Hx Diphtheria, Pertussis, Tetanus Vaccination: Yes - 2011 Physical Exam - Vital signs Vitals: Temp Pulse Resp BP Pulse Ox 98.9 F 47 L 18 148/62 H 99 08/13/17 11:54 08/13/17 11:54 08/13/17 11:54 08/13/17 11:54 08/13/17 11:54 Course - Vital Signs Vital signs: Temp Pulse Resp BP Pulse Ox 98.9 F 47 L 18 148/62 H 99 08/13/17 11:54 08/13/17 11:54 08/13/17 11:54 08/13/17 11:54 08/13/17 11:54
[2017-08-13] MEDS ORDERED: DIPHENHYDRAMINE HCL 50 MG/ML VIAL IV ONE (13:07)
[2017-08-13 13:16] LABS: ABSOLUTE BASOPHILS # (AUTO) 0.1 10^3/uL (0.0-0.2); ABSOLUTE LYMPHOCYTES (AUTO) 1.4 10^3/uL (0.5-4.7); ABSOLUTE MONOCYTES (AUTO) 0.4 10^3/uL (0.1-1.4); ABSOLUTE NEUT (AUTO) 9.2 10^3/uL (1.7-8.2); BASOPHILS % (AUTO) 0.7 % (0-2); EOSINOPHILS % (AUTO) 0.1 % (0-6); HEMATOCRIT 50.6 % (37.9-51.0); HEMOGLOBIN 17.5 g/dL (13.5-17.0); HGB HCT DIFFERENCE 1.9; LYMPHOCYTES % (AUTO) 12.7 % (13-45); MEAN CORPUSCULAR HEMOGLOBIN 31.6 pg (27.0-33.4); MEAN CORPUSCULAR HGB CONC 34.6 g/dL (32.0-36.0); MEAN CORPUSCULAR VOLUME 91 fl (80-97); MONOCYTES % (AUTO) 3.6 % (3-13); RED BLOOD COUNT 5.55 10^6/uL (4.35-5.55); RED CELL DISTRIBUTION WIDTH 14.5 % (11.5-14.0); SEGMENTED NEUTROPHILS % (AUTO) 82.9 % (42-78)
[2017-08-13 13:31] LABS: AMORPHOUS SEDIMENT,URINE 2+ /HPF; APPEARANCE,URINE TURBID; BILIRUBIN,URINE NEGATIVE (NEGATIVE); GLUCOSE, URINE NEGATIVE (NEGATIVE); KETONES,URINE 20 mg/dL (NEGATIVE); LEUKOCYTE ESTERASE,URINE NEGATIVE (NEGATIVE); NITRITE,URINE NEGATIVE (NEGATIVE); PROTEIN,URINE 30 mg/dL (NEGATIVE); URINE SPECIFIC GRAVITY 1.027
[2017-08-13 13:43] LABS: ALANINE AMINOTRANSFERASE 853 U/L (21-72); ALKALINE PHOSPHATASE 216 U/L (38-126); ANION GAP 15 (5-19); ASPARTATE AMINO TRANSFERASE 558 U/L (17-59); BILIRUBIN,DIRECT 1.7 mg/dL (0.0-0.4); BILIRUBIN,TOTAL 3.1 mg/dL (0.2-1.3); BLOOD UREA NITROGEN 13 mg/dL (7-20); CALCIUM 9.9 mg/dL (8.4-10.2); CARBON DIOXIDE 26 mmol/L (22-30); CHLORIDE 104 mmol/L (98-107); CREATININE RESULT 1.05 mg/dL (0.52-1.25); GLUCOSE 131 mg/dL (75-110); LIPASE 167.4 U/L (23-300); POTASSIUM 4.8 mmol/L (3.6-5.0); SODIUM 145.3 mmol/L (137-145); TOTAL PROTEIN 8.8 g/dL (6.3-8.2)
--- NOTE | 2017-08-13 13:43 | ER Document Report ---
Doctor's Note Notes: 08/13/17 13:42 While transferring of another patient notified by nursing staff patient look to be having allergic reaction to morphine. States the patient had redness of his arm therefore a dose of IV Benadryl was ordered. This was given by nursing staff. Later was able to evaluate the patient resting comfortably. No signs of allergic reaction anaphylaxis seen otherwise stable
[2017-08-13] MEDS ORDERED: HYDROMORPHONE HCL INJ/PF 2 MG/ML AMPULE IV ONE ×2 (14:20→17:54)
--- NOTE | 2017-08-13 14:26 | ER Document Report ---
ED GI/ - General Chief Complaint: Abdominal Pain Stated Complaint: ABDOMINAL PAIN Time Seen by Provider: 08/13/17 12:18 Notes: Patient says that he is having nausea and diarrhea and severe abdominal pains that began yesterday. He is having hot flashes but does not think he is having a fever. He has not had any blood in his stools. Vomited about 5 times earlier , but no longer vomiting and no nausea. Patient has a history of ulcerative colitis, diagnosed a couple of years ago. He has had flares of similar symptoms in the past, the most recent being 6 months ago. Has had his appendix removed but no other abdominal surgeries. TRAVEL OUTSIDE OF THE [place] IN LAST 30 DAYS: No - Related Data Allergies/Adverse Reactions: naproxen Allergy (Verified 08/13/17 11:52) Penicillins Allergy (Verified 08/13/17 11:52) Sulfa (Sulfonamide Antibiotics) Allergy (Verified 08/13/17 11:52) sulfamethoxazole [From Bactrim] Allergy (Verified 08/13/17 11:52) tramadol HCl [From Ultram] Allergy (Verified 08/13/17 11:52) trimethoprim [From Bactrim] Allergy (Verified 08/13/17 11:52) Past Medical History - Social History Smoking Status: Current Every Day Smoker Chew tobacco use (# tins/day): No Frequency of alcohol use: Rare Drug Abuse: Marijuana Family History: Reviewed & Not Pertinent Patient has suicidal ideation: No Patient has homicidal ideation: No Pulmonary Medical History: Reports: Hx Asthma GI Medical History: Reports: Hx Diverticulitis, Hx Gastroesophageal Reflux Disease, Hx Ulcerative Colitis, Hx Colonoscopy, Hx Endoscopy Musculoskeltal Medical History: Reports Hx Arthritis, Reports Hx Musculoskeletal Deformity - Chronic back pain and herniated disc according to the patient, Reports Hx Musculoskeletal Trauma Psychiatric Medical History: Reports: Hx Depression Past Surgical History: Reports: Hx Abdominal Surgery - L inguinal hernia repair , Hx Appendectomy, Hx Inguinal Hernia - Left - Immunizations Immunizations up to date: Yes Hx Diphtheria, Pertussis, Tetanus Vaccination: Yes - 2011 Review of Systems - Review of Systems Notes: REVIEW OF SYSTEMS: CONSTITUTIONAL : Denies fever. EENT: Denies eye, ear, nose or mouth or throat pain or other symptoms. CARDIOVASCULAR: Denies chest pain. RESPIRATORY: Denies cough, chest congestion, or shortness of breath. GASTROINTESTINAL: See HPI. GENITOURINARY: Denies difficulty or painful urinating, urinary frequency, blood in urine. MUSCULOSKELETAL: Denies back or neck pain. Denies joint pain or swelling. SKIN: Denies rash or skin lesions. NEUROLOGICAL: Denies LOC or altered mental status. Denies headache. Denies sensory loss or motor deficits. ALL OTHER SYSTEMS REVIEWED AND NEGATIVE. Physical Exam - Vital signs Vitals: Temp Pulse Resp BP Pulse Ox 98.9 F 47 L 18 148/62 H 99 08/13/17 11:54 08/13/17 11:54 08/13/17 11:54 08/13/17 11:54 08/13/17 11:54 Interpretation: Normal - Notes Notes: PHYSICAL EXAMINATION: GENERAL: Well-appearing, in no acute distress, but appears to be in pain. HEAD: Atraumatic, normocephalic. EYES: Pupils equal round and reactive to light, extraocular movements intact. ENT: oropharynx clear without exudates. Moist mucous membranes. NECK: Normal range of motion, supple. LUNGS: Breath sounds clear and equal bilaterally. HEART: Regular rate and rhythm without murmurs. ABDOMEN: Soft, but tender in the suprapubic region. No guarding or rebound. No masses felt. No bruits heard. BACK: No tenderness throughout entire back. EXTREMITIES: Normal range of motion without pain. NEUROLOGICAL: Normal speech, normal gait. Normal sensory, motor, and reflex exams. Awake, alert, and oriented x3. Cranial nerves normal. PSYCH: Normal mood, normal affect. SKIN: Warm, dry, no rashes. Course - Re-evaluation Re-evalutation: 08/13/17 18:46 Patient's LFTs are slightly elevated. Patient denies alcohol ingestion. He has been positive for cocaine and other drugs in recent drug screens here in this emergency department. Has not been sick recently such as with a viral illness. He had normal LFTs this past summer on previous lab studies. Since patient's white count is minimally elevated at 11,000 and the only other positive finding of his tests are the elevated LFTs, I contemplated doing an ultrasound of the right upper quadrant, but decided to postpone it for a couple of days to see if the patient's symptoms may resolve. I have told the patient that I will prescribe him some medications for nausea and vomiting as well as some Ultram for pain but would not give him anymore Dilaudid without more specific findings. I am going to be working here Friday, the day after tomorrow, I told the patient that if he is better he does not need to return for any further recheck , just have a repeat of his liver function tests in 2 or 3 weeks. If he is still having the same pain is currently having, I recommended he come back to repeat some labs and perhaps consider doing an ultrasound of the right upper quadrant. And, finally, if the patient gets worse before Friday, such as fever , uncontrolled vomiting, worsening pain, he is advised to return immediately for reevaluation at that time. - Vital Signs Vital signs: Temp Pulse Resp BP Pulse Ox 98.5 F 75 18 113/60 96 08/13/17 16:08 08/13/17 16:08 08/13/17 16:08 08/13/17 16:08 08/13/17 16:08 - Laboratory Result Diagrams: 08/13/17 12:55 08/13/17 12:55 Laboratory results interpreted by me: 08/13/17 08/13/17 08/13/17 12:31 12:55 12:55 WBC 11.0 H Hgb 17.5 H RDW 14.5 H Seg Neutrophils % 82.9 H Lymphocytes % 12.7 L Absolute Neutrophils 9.2 H Sodium 145.3 H Glucose 131 H Total Bilirubin 3.1 H Direct Bilirubin 1.7 H AST 558 H ALT 853 H Alkaline Phosphatase 216 H Total Protein 8.8 H Urine Protein 30 H Urine Ketones 20 H Urine Urobilinogen 4.0 H - Diagnostic Test Radiology reviewed: Image reviewed, Reports reviewed - CT of the abdomen and pelvis with oral and IV contrast is normal. Specifically, the CT shows normal liver, pancreas, and gallbladder. Discharge - Discharge Clinical Impression: Abdominal pain, Elevated LFTs Condition: Stable Disposition: HOME, SELF-CARE Additional Instructions: ABDOMINAL PAIN: There are many causes of abdominal pain. Pain can mean a serious problem requiring surgery (such as appendicitis). It can also be an innocent problem that goes away on its own (such as a viral infection). Often, time must pass to determine the cause of pain. The physician does not feel that hospitalization is necessary, at present. Things may change within the next 24 hours. Call the doctor or come back for re- examination if any problems occur, such as: (1) Pain that becomes more severe, steady, or becomes concentrated in one specific area. Also, pain that is more severe with movement or coughing. (2) Vomiting that persists or becomes more frequent. (3) Blood in the vomitus, urine, or bowel movements. Blood in the stool may have a tarry or black appearance. (4) Shaking chills or fever greater than 100 degrees F. (5) The abdomen becomes more distended or swollen. (6) Bowel movements cease. (7) Failure to improve as expected. Liver Function Abnormality Your evaluation has shown an abnormality of your liver function. This may not be serious, but you need further testing. Abnormal liver function can be caused by alcohol, medicines, virus infections, heart failure, tumors, gallbladder problems, and many other diseases. But sometimes "abnormal" liver enzymes are "normal" -- it's just the way your liver works and there's nothing wrong. We need to be sure. If your doctor thinks the abnormal test was caused by alcohol, medicine, or a recent virus, we may just repeat the liver enzyme test later. Often, the test shows that the elevated enzymes are back to normal. Usually no treatment is necessary, except for avoiding the cause of the liver dysfunction (such as alcohol or a specific medicine). Further testing could include an ultrasound of the liver, liver scan, or perhaps a liver biopsy in difficult cases. Call the doctor if you become increasingly yellow, vomit repeatedly, begin to bruise or bleed easily, or have worsening abdominal pain. NORMAL EXAM AND WORKUP: At this time, except for your elevated liver function tests, your examination and workup show no significant abnormality. No significant abnormal physical findings are noted. All laboratory, EKG, and imaging (x-ray, CT scans, ultrasound) studies that were ordered show no significant abnormality. Although your examination and all studies that were ordered showed no significant abnormal finding, there are no examinations and no studies that are 100% accurate. There is always the possibility that some abnormality could exist and not be detected with physical examination or within the limits and capabilities of laboratory and other studies. You should return or follow up as you were instructed on your visit today for further evaluation if your symptoms do not resolve. PAIN MEDICATION INJECTION: You have received an injection of a pain medication. You should experience significant pain relief within 45 minutes. This drug is a narcotic - - it will impair your judgement, slow your reaction time and make you sleepy ( as well as relieve your pain). Narcotics also can cause nausea. You should not drive, work with machinery, or perform any task requiring mental alertness until all effects of the medication are gone -- six to eight hours. Do not take any alcohol, or sedatives, and do not take any other medication without checking with your physician. [place] MEDICATION: You have been given a medication to suppress nausea and vomiting. This type of medication can be given as a shot, pill, or suppository. It will usually last for many hours. Pills and shots usually last six to eight hours, suppositories last about 12 hours. For the typical illness, only one or two doses of the medication may be necessary. Mild lightheadedness may occur. This type of medicine can cause drowsiness. Do not drive or operate dangerous machinery while under its influence. Do not mix with alcohol. See your doctor at once if you have muscle spasms or tightness, or uncontrollable motions (particularly of the neck, mouth, or jaw). Persistent vomiting or severe lightheadedness should also be evaluated by the physician. FOLLOW-UP CARE: If you have been referred to a physician for follow-up care, call the physician s office for an appointment as you were instructed or within the next two days. If you experience worsening or a significant change in your symptoms, notify the physician immediately or return to the Emergency Department at any time for re-evaluation. If your symptoms are still present Friday, contact me at the number I provided to you and we will coordinate seeing you again Friday to repeat some lab work and consider another imaging study such as an ultrasound of your liver and gallbladder area. If your symptoms have resolved, you do not need to return for further evaluation. However, if your symptoms resolve you still should have a repeat liver function lab test done in 2-3 weeks to see if your liver is improving from its current condition or if is getting worse and needs further investigation. If your symptoms worsen between now and Friday morning, do not wait until Friday , but rather, return for us to reevaluate at any time. Worsening symptoms would be fever, worsening pain, more vomiting, etc. Prescriptions: Promethazine HCl [Phenergan 25 mg Tablet] 1 - 2 tab PO Q6H PRN #15 tablet PRN Reason:
--- NOTE | 2017-08-13 17:24 | RADIOLOGY REPORT (SQ) ---
EXAM DESCRIPTION: CT ABD/PELVIS WITH IV ORAL COMPLETED DATE/TIME: 08/13/2017 5:13 pm REASON FOR STUDY: Hx ulcerative colitis, lower midline pain diarrhea COMPARISON: 02/03/2014. TECHNIQUE: CT scan of the abdomen and pelvis performed with intravenous and oral contrast using mathew georgi scanning technique with dynamic intravenous contrast injection. Images reviewed with lung, soft t issue, and bone windows. Reconstructed coronal and sagittal MPR images reviewed. Delayed images for e valuation of the urinary system also acquired. All images stored on PACS. All CT scanners at this facility use dose modulation, iterative reconstruction, and/or weight based d osing when appropriate to reduce radiation dose to as low as reasonably achievable (ALARA). [facility]: Dose Right [facility]: CareDose [facility]: Dose Right [facility]: Teradose 4D [facility]: [employer] CONTRAST TYPE AND DOSE: contrast/concentration: Isovue 370.00 mg/ml; Total Contrast Delivered: 83.0 ml; Total Saline Delivered: 68.0 ml RENAL FUNCTION: BUN 13 creatinine 1.05. RADIATION DOSE: Up-to-date CT equipment and radiation dose reduction techniques were employed. CTDIv ol: 9.5 - 13.4 mGy. DLP: 1204 mGy-cm.. LIMITATIONS: None. FINDINGS: LOWER CHEST: No significant findings. No nodules or infiltrates. LIVER: Normal size. No masses. No dilated ducts. SPLEEN: Normal size. No focal lesions. PANCREAS: No masses. No significant calcifications. No adjacent inflammation or peripancreatic fluid collections. Pancreatic duct not dilated. GALLBLADDER: No identified stones by CT criteria. No inflammatory changes to suggest cholecystitis. ADRENAL GLANDS: No significant masses or asymmetry. RIGHT KIDNEY AND URETER: No solid masses. No significant calcification. No hydronephrosis or hydroure ter. LEFT KIDNEY AND URETER: No solid masses. No significant calcification. No hydronephrosis or hydrouret er. AORTA AND VESSELS: No aneurysm. No dissection. Renal arteries, SMA, celiac without stenosis. RETROPERITONEUM: No retroperitoneal adenopathy, hemorrhage or masses. BOWEL AND PERITONEAL CAVITY: No obstruction. No visualized masses. No free fluid. No inflammatory ch anges or thickening of bowel wall. APPENDIX: Normal. PELVIS: No significant masses. Normal bladder. No free fluid. ABDOMINAL WALL: No masses. No hernias. BONES: No significant or acute findings. OTHER: No other significant finding. IMPRESSION: NO SIGNIFICANT OR ACUTE FINDINGS IN THE ABDOMEN OR PELVIS. TECHNICAL DOCUMENTATION: JOB ID: [id number] Quality ID # [id number]: Final reports with documentation of one or more dose reduction techniques (e.g., Au tomated exposure control, adjustment of the mA and/or kV according to patient size, use of iterative reconstruction technique) 2010 [employer]- All Rights Reserved
[2017-08-13 19:02] LABS: URINE BARBITURATES SCREEN NEGATIVE; URINE METHADONE SCREEN NEGATIVE; URINE OPIATES LOW NEGATIVE; URINE PHENCYCLIDINE SCREEN NEGATIVE
[2017-08-13 19:22] VITALS: BP 110/59
== END 2017-08-13 19:14 | disposition home or self-care (01) ==
LOC: ER 11:46
DX: R10.9 Unspecified abdominal pain (principal); R94.5 Abnormal results of liver function studies; R11.0 Nausea; R19.7 Diarrhea, unspecified; R50.9 Fever, unspecified; F17.200 Nicotine dependence, unspecified, uncomplicated
CPT/HCPCS: 96376; 99284; 96361; 96374; 96375; 36415; 83690; 85025; 80053; 81001; 80307; 74177; J1200; J2270; J1170; J2405; J7030

== ENCOUNTER 2017-08-15 09:50 | Emergency (ER) | payer SELFPAY ==
[2017-08-15] MEDS ORDERED: ONDANSETRON 4 MG TAB.RAPDIS PO ONE ×2 (10:17→10:44)
[2017-08-15] MEDS ORDERED: NORMAL SALINE 1000 ML 1,000 ML IV ONE (10:17)
--- NOTE | 2017-08-15 10:20 | ER Document Report ---
ED Medical Screen (RME) - General Chief Complaint: Abdominal Pain Stated Complaint: ABDOMINAL PAIN Time Seen by Provider: 08/15/17 09:58 Mode of Arrival: Ambulatory Information source: Patient TRAVEL OUTSIDE OF THE [place] IN LAST 30 DAYS: No - HPI Patient complains to provider of: abd pain Onset: Other - pt seen here 2 days ago with neg W/U including CT scan -- states pain has gotten worse with nausea and vomiting - Related Data Allergies/Adverse Reactions: naproxen Allergy (Verified 08/15/17 09:52) Penicillins Allergy (Verified 08/15/17 09:52) Sulfa (Sulfonamide Antibiotics) Allergy (Verified 08/15/17 09:52) sulfamethoxazole [From Bactrim] Allergy (Verified 08/15/17 09:52) tramadol HCl [From Ultram] Allergy (Verified 08/15/17 09:52) trimethoprim [From Bactrim] Allergy (Verified 08/15/17 09:52) Past Medical History - Social History Chew tobacco use (# tins/day): No Frequency of alcohol use: None Drug Abuse: Marijuana Family history: Hypertension - Past Medical History Cardiac Medical History: Denies: Hx Coronary Artery Disease, Hx Heart Attack, Hx Hypertension Pulmonary Medical History: Reports: Hx Asthma Denies: Hx Bronchitis, Hx COPD, Hx Pneumonia Neurological Medical History: Denies: Hx Cerebrovascular Accident, Hx Seizures Renal/ Medical History: Denies: Hx Peritoneal Dialysis GI Medical History: Reports: Hx Diverticulitis, Hx Gastroesophageal Reflux Disease, Hx Ulcerative Colitis, Hx Colonoscopy, Hx Endoscopy Musculoskeltal Medical History: Reports Hx Arthritis, Reports Hx Musculoskeletal Deformity - Chronic back pain and herniated disc according to the patient, Reports Hx Musculoskeletal Trauma Psychiatric Medical History: Reports: Hx Depression Past Surgical History: Reports: Hx Abdominal Surgery - L inguinal hernia repair , Hx Appendectomy, Hx Inguinal Hernia - Left - Immunizations Immunizations up to date: Yes Hx Diphtheria, Pertussis, Tetanus Vaccination: Yes - 2011 Physical Exam - Vital signs Vitals: Temp Pulse Resp BP Pulse Ox 98.4 F 51 L 18 146/75 H 99 08/15/17 09:52 08/15/17 09:52 08/15/17 09:52 08/15/17 09:52 08/15/17 09:52 Course - Vital Signs Vital signs: Temp Pulse Resp BP Pulse Ox 98.4 F 51 L 18 146/75 H 99 08/15/17 09:52 08/15/17 09:52 08/15/17 09:52 08/15/17 09:52 08/15/17 09:52
--- NOTE | 2017-08-15 10:34 | EKG REPORT ---
SEVERITY:- ABNORMAL ECG - BRADYCARDIA WITH LYNETTE ESCAPE NONSPECIFIC INTRAVENTRICULAR CONDUCTION DELAY MINIMAL ST DEPRESSION, INFERIOR LEADS : Confirmed by: Jori Ma 15-Aug-2017 10:33:46
[2017-08-15 10:44] LABS: APPEARANCE,URINE SLIGHTLY-CLOUDY; BILIRUBIN,URINE NEGATIVE (NEGATIVE); GLUCOSE, URINE NEGATIVE (NEGATIVE); KETONES,URINE NEGATIVE (NEGATIVE); LEUKOCYTE ESTERASE,URINE NEGATIVE (NEGATIVE); NITRITE,URINE NEGATIVE (NEGATIVE); PROTEIN,URINE NEGATIVE (NEGATIVE); URINE SPECIFIC GRAVITY 1.019
--- NOTE | 2017-08-15 10:45 | ER Document Report ---
ED GI/ - General Chief Complaint: Abdominal Pain Stated Complaint: ABDOMINAL PAIN Time Seen by Provider: 08/15/17 09:58 Mode of Arrival: Ambulatory Information source: Patient Notes: 36 yo male c/o epigastric and RUQ abdominal, pressure, sharp pain since friday. Cramps in lower abdomen, worse in epigastric and RUQ, keeps filling up with gas. Seen friday in ER, Padmini hleped the pain, was told that his liver enzymes which he has never had them before. No blood or mucous in stools. No cocaine in 2 months, marijuana frequently. IV Heroin 3 months ago-went to [facility], [place]. Was on Suboxone until he gave it back on 07-30, gave it to dr de los santos, last dose 07-29. Vomited all last night, twice this morning. Diarrhea-liquid has to puch harder to get it out. No fever. Repeatly asking for pain medication same as he got on friday TRAVEL OUTSIDE OF THE [place] IN LAST 30 DAYS: No - Related Data Allergies/Adverse Reactions: naproxen Allergy (Verified 08/15/17 09:52) Penicillins Allergy (Verified 08/15/17 09:52) Sulfa (Sulfonamide Antibiotics) Allergy (Verified 08/15/17 09:52) sulfamethoxazole [From Bactrim] Allergy (Verified 08/15/17 09:52) tramadol HCl [From Ultram] Allergy (Verified 08/15/17 09:52) trimethoprim [From Bactrim] Allergy (Verified 08/15/17 09:52) Past Medical History - General Information source: Patient - Social History Smoking Status: Current Every Day Smoker Chew tobacco use (# tins/day): No Frequency of alcohol use: None Drug Abuse: Marijuana, Other - denies cocaine although it is on drug screen Lives with: Spouse/Significant other Family History: Reviewed & Not Pertinent Patient has suicidal ideation: No Patient has homicidal ideation: No Pulmonary Medical History: Reports: Hx Asthma GI Medical History: Reports: Hx Diverticulitis, Hx Gastroesophageal Reflux Disease, Hx Ulcerative Colitis, Hx Colonoscopy, Hx Endoscopy Musculoskeltal Medical History: Reports Hx Arthritis, Reports Hx Musculoskeletal Deformity - Chronic back pain and herniated disc according to the patient, Reports Hx Musculoskeletal Trauma Psychiatric Medical History: Reports: Hx Depression Past Surgical History: Reports: Hx Appendectomy, Hx Inguinal Hernia - Left - Immunizations Immunizations up to date: Yes Hx Diphtheria, Pertussis, Tetanus Vaccination: Yes - 2011 Review of Systems - Review of Systems Constitutional: No symptoms reported EENT: No symptoms reported Cardiovascular: No symptoms reported Respiratory: No symptoms reported Gastrointestinal: See HPI Genitourinary: No symptoms reported Male Genitourinary: No symptoms reported Musculoskeletal: No symptoms reported Skin: No symptoms reported Hematologic/Lymphatic: No symptoms reported Neurological/Psychological: No symptoms reported Physical Exam - Vital signs Vitals: Temp Pulse Resp BP Pulse Ox 98.4 F 51 L 18 146/75 H 99 08/15/17 09:52 08/15/17 09:52 08/15/17 09:52 08/15/17 09:52 08/15/17 09:52 Interpretation: Normal - General General appearance: Appears well, Alert In distress: None - HEENT Head: Normocephalic, Atraumatic Eyes: Normal Conjunctiva: Normal. No: Injected Pupils: PERRL Nerve palsy: Yes Mucous membranes: Normal Pharynx: Normal Neck: Supple - Respiratory Respiratory status: No respiratory distress Chest status: Nontender Breath sounds: Normal Chest palpation: Normal - Cardiovascular Rhythm: Regular Heart sounds: Normal auscultation Murmur: No - Abdominal Inspection: Normal Distension: No distension Bowel sounds: Normal Tenderness: Tender - suprapubic, epigastric and RUQ Organomegaly: No organomegaly. No: Hepatomegaly, Splenomegaly - Back Back: Normal, Nontender. No: CVA tenderness - Extremities General upper extremity: Normal inspection, Nontender, Normal color, Normal ROM , Normal temperature General lower extremity: Normal inspection, Nontender, Normal color, Normal ROM , Normal temperature, Normal weight bearing. No: Leti's sign - Neurological Neuro grossly intact: Yes Cognition: Normal Orientation: AAOx4 [place] Coma Scale Eye Opening: Spontaneous [place] Coma Scale Verbal: Oriented [place] Coma Scale Motor: Obeys Commands [place] Coma Scale Total: 15 Speech: Normal Motor strength normal: LUE, RUE, LLE, RLE Sensory: Normal - Psychological Associated symptoms: Normal affect, Normal mood - Skin Skin Temperature: Warm Skin Moisture: Dry Skin Color: Normal Skin irregularity: negative: Rash Course - Re-evaluation Re-evalutation: 08/15/17 12:10 Liver enzymes are still elevated but not as high as they were 2 days ago. The total bilirubin dropped from 3.1-2.4. Direct bili was 1.7 and it is now 1 lipase continues to be negative. 08/15/17 12:[address] leigh, pt can be d/c'd with family practice follow up. pain relieved with compazine and benadryl, added bentyl in for the cramps. Discussed at length the plan for hime and follow up he needs. 08/15/17 12:36 - Vital Signs Vital signs: Temp Pulse Resp BP Pulse Ox 98.4 F 48 L 16 146/93 H 100 08/15/17 09:52 08/15/17 12:58 08/15/17 12:58 08/15/17 12:58 08/15/17 12:58 - Laboratory Result Diagrams: 08/15/17 11:15 08/15/17 11:15 Laboratory results interpreted by me: 08/15/17 08/15/17 08/15/17 10:19 11:15 11:15 RDW 14.3 H Seg Neutrophils % 79.3 H Sodium 146.2 H Glucose 123 H Total Bilirubin 2.4 H Direct Bilirubin 1.0 H AST 303 H ALT 644 H Alkaline Phosphatase 162 H Urine Urobilinogen 2.0 H Discharge - Discharge Clinical Impression: diarrhea, Liver enzyme elevation Abdominal pain Qualifiers: Abdominal location: unspecified location Qualified Code(s): R10.9 - Unspecified abdominal pain Vomiting Qualifiers: Vomiting type: unspecified Vomiting Intractability: non-intractable Nausea presence: unspecified Qualified Code(s): R11.10 - Vomiting, unspecified Condition: Good Disposition: HOME, SELF-CARE Instructions: Abdominal Pain ([facility]), Antinausea Medication ([facility]), Antispasmodics ([facility]), Diarrhea, Nonspecific ([facility]), Family Physicians / Practices , Vomiting ([facility]) Additional Instructions: return to ER if worse Your liver enzymes have improved today See a edger feeder about your abdominal pain and liver enzymes Copy of lab were given to you Hepatitis profile is pending I am sending you home with a order for stool culture and C. difficile to check the diarrhea See a family practice provider about her liver enzymes, see Bacteriologist Medical dr. crawford about your low heart rate with junctional rhythm, copy of ekg given to you Please complete the patient satisfaction survey if you get one, and return it.. If you do not receive a survey, then you can go to the [facility] website, [email or web address] and place your comments about your very good care. Thank you very much. It was a pleasure being your medical provider today. Prescriptions: Dicyclomine HCl [Bentyl 10 mg Capsule] 1 cap PO TIDP PRN #20 cap PRN Reason: Forms: Return to Work, Follow-Up Outpatient Testing Referrals: JANELLE PERDOMO MD [ACTIVE STAFF] - Follow up in 3-5 days ESPERANZA DUMONT MD [ACTIVE STAFF] - 08/18/17
[2017-08-15] MEDS ORDERED: LANSOPRAZOLE 30 MG TAB.RAP.DR PO ONE (11:23)
[2017-08-15] MEDS ORDERED: FAMOTIDINE 20 MG TABLET PO ONE (11:23)
[2017-08-15] MEDS ORDERED: PROCHLORPERAZINE EDISYLATE INJ 10 MG/2 ML VIAL IV ONE (11:24)
[2017-08-15] MEDS ORDERED: DIPHENHYDRAMINE HCL 50 MG/ML VIAL IV ONE (11:24)
[2017-08-15 11:29] LABS: ADD ON TESTING BLD IN LAB ACKNOWLEDGE
[2017-08-15 11:30] LABS: URINE BARBITURATES SCREEN NEGATIVE; URINE METHADONE SCREEN NEGATIVE; URINE OPIATES LOW NEGATIVE; URINE PHENCYCLIDINE SCREEN NEGATIVE
[2017-08-15 11:31] LABS: ABSOLUTE BASOPHILS # (AUTO) 0.1 10^3/uL (0.0-0.2); ABSOLUTE LYMPHOCYTES (AUTO) 1.4 10^3/uL (0.5-4.7); ABSOLUTE MONOCYTES (AUTO) 0.6 10^3/uL (0.1-1.4); BASOPHILS % (AUTO) 0.6 % (0-2); EOSINOPHILS % (AUTO) 0.2 % (0-6); HEMATOCRIT 49.3 % (37.9-51.0); HEMOGLOBIN 16.8 g/dL (13.5-17.0); HGB HCT DIFFERENCE 1.1; LYMPHOCYTES % (AUTO) 13.8 % (13-45); MEAN CORPUSCULAR HEMOGLOBIN 31.5 pg (27.0-33.4); MEAN CORPUSCULAR HGB CONC 34.2 g/dL (32.0-36.0); MEAN CORPUSCULAR VOLUME 92 fl (80-97); MONOCYTES % (AUTO) 6.1 % (3-13); RED BLOOD COUNT 5.34 10^6/uL (4.35-5.55); RED CELL DISTRIBUTION WIDTH 14.3 % (11.5-14.0); SEGMENTED NEUTROPHILS % (AUTO) 79.3 % (42-78)
--- NOTE | 2017-08-15 11:47 | RADIOLOGY REPORT (SQ) ---
EXAM DESCRIPTION: ACUTE ABDOMEN SERIES COMPLETED DATE/TIME: 08/15/2017 11:37 am REASON FOR STUDY: abd pain COMPARISON: 06/18/2015. NUMBER OF VIEWS: Three views. TECHNIQUE: Frontal chest, supine abdomen and upright/decubitus abdomen radiographic images acquired. LIMITATIONS: None. FINDINGS: CHEST: Lungs clear of infiltrates. FREE AIR: None. No abnormal gas collections. BOWEL GAS PATTERN: Nonobstructive pattern. No dilated loops or air fluid levels. CALCIFICATIONS: No suspicious calcifications. HARDWARE: None in the abdomen. SOFT TISSUES: No gross mass or suggestion of organomegaly. BONES: No acute fracture. No worrisome bone lesions. OTHER: No other significant finding. IMPRESSION: NO RADIOGRAPHIC EVIDENCE FOR ACUTE ABDOMINAL DISEASE. TECHNICAL DOCUMENTATION: JOB ID: [id number] [employer]- All Rights Reserved
[2017-08-15 11:51] LABS: ALCOHOL < 10 mg/dL (NONE DETECTED)
[2017-08-15 11:52] LABS: ALANINE AMINOTRANSFERASE 644 U/L (21-72); ALBUMIN 4.5 g/dL (3.5-5.0); ALKALINE PHOSPHATASE 162 U/L (38-126); ANION GAP 13 (5-19); ASPARTATE AMINO TRANSFERASE 303 U/L (17-59); BILIRUBIN,TOTAL 2.4 mg/dL (0.2-1.3); BLOOD UREA NITROGEN 11 mg/dL (7-20); CALCIUM 9.5 mg/dL (8.4-10.2); CARBON DIOXIDE 28 mmol/L (22-30); CHLORIDE 105 mmol/L (98-107); CREATININE RESULT 1.05 mg/dL (0.52-1.25); GLUCOSE 123 mg/dL (75-110); LIPASE 263.4 U/L (23-300); POTASSIUM 4.5 mmol/L (3.6-5.0); SODIUM 146.2 mmol/L (137-145); TOTAL PROTEIN 7.6 g/dL (6.3-8.2)
[2017-08-15] MEDS ORDERED: DIPHENHYDRAMINE HCL 50 MG CAPSULE PO ONE (12:22)
[2017-08-15] MEDS ORDERED: DICYCLOMINE HCL 20 MG TABLET PO ONE (12:42)
[2017-08-15 13:01] VITALS: BP 146/93
== END 2017-08-15 13:02 | disposition home or self-care (01) ==
LOC: ER 09:50
DX: R10.13 Epigastric pain (principal); R10.11 Right upper quadrant pain; R10.30 Lower abdominal pain, unspecified; R11.10 Vomiting, unspecified; R19.7 Diarrhea, unspecified; R74.8 Abnormal levels of other serum enzymes; J45.909 Unspecified asthma, uncomplicated; F17.200 Nicotine dependence, unspecified, uncomplicated; Z88.8 Allergy status to other drugs, medicaments and biological substances; Z88.0 Allergy status to penicillin; Z88.2 Allergy status to sulfonamides; Z88.1 Allergy status to other antibiotic agents; Z88.5 Allergy status to narcotic agent; Z87.19 Personal history of other diseases of the digestive system; Z90.49 Acquired absence of other specified parts of digestive tract
CPT/HCPCS: 99284; 96361; 96374; 96375; 36415; 80307 ×2; 83690; 85025; 80053; 81001; 80074; 74022; 93005; 93010; J3490; J1200; S0119; J0780; J7030

== ENCOUNTER 2017-08-19 12:02 | Emergency (ER) | payer SELFPAY ==
[2017-08-19] MEDS ORDERED: ONDANSETRON HCL INJ/PF 4 MG/2 ML SDV IV ONE (12:44)
[2017-08-19] MEDS ORDERED: NORMAL SALINE 1000 ML 1,000 ML IV ONE (12:44)
[2017-08-19] MEDS ORDERED: DICYCLOMINE HCL 20 MG TABLET PO ONE (12:44)
--- NOTE | 2017-08-19 12:46 | ER Document Report ---
ED Medical Screen (RME) - General Chief Complaint: Abdominal Pain Stated Complaint: ABDOMINAL PAIN Time Seen by Provider: 08/19/17 12:41 Notes: Patient presents with severe right upper quadrant abdominal pain. States he has had an appendectomy before. States he is having nausea and vomiting as well. Patient states that his throat swells with tramadol and Ultram. He states that he also is allergic to NSAIDs. Patient states that the last time he was here he received some "Francine stuff" and "that worked." TRAVEL OUTSIDE OF THE [place] IN LAST 30 DAYS: No - Related Data Allergies/Adverse Reactions: naproxen Allergy (Verified 08/19/17 12:17) Penicillins Allergy (Verified 08/19/17 12:17) Sulfa (Sulfonamide Antibiotics) Allergy (Verified 08/19/17 12:17) sulfamethoxazole [From Bactrim] Allergy (Verified 08/19/17 12:17) tramadol HCl [From Ultram] Allergy (Verified 08/19/17 12:17) trimethoprim [From Bactrim] Allergy (Verified 08/19/17 12:17) Past Medical History - Social History Frequency of alcohol use: None Drug Abuse: Marijuana Family history: Hypertension - Past Medical History Cardiac Medical History: Denies: Hx Coronary Artery Disease, Hx Heart Attack, Hx Hypertension Pulmonary Medical History: Reports: Hx Asthma Denies: Hx Bronchitis, Hx COPD, Hx Pneumonia Neurological Medical History: Denies: Hx Cerebrovascular Accident, Hx Seizures Renal/ Medical History: Denies: Hx Peritoneal Dialysis GI Medical History: Reports: Hx Diverticulitis, Hx Gastroesophageal Reflux Disease, Hx Ulcerative Colitis, Hx Colonoscopy, Hx Endoscopy Musculoskeltal Medical History: Reports Hx Arthritis, Reports Hx Musculoskeletal Deformity - Chronic back pain and herniated disc according to the patient, Reports Hx Musculoskeletal Trauma Psychiatric Medical History: Reports: Hx Depression Past Surgical History: Reports: Hx Abdominal Surgery - L inguinal hernia repair , Hx Appendectomy, Hx Inguinal Hernia - Left - Immunizations Immunizations up to date: Yes Hx Diphtheria, Pertussis, Tetanus Vaccination: Yes - 2011 Physical Exam - Vital signs Vitals: Temp Pulse Resp BP Pulse Ox 98.3 F 83 18 129/90 H 96 08/19/17 12:13 08/19/17 12:13 08/19/17 12:13 08/19/17 12:13 08/19/17 12:13 Course - Vital Signs Vital signs: Temp Pulse Resp BP Pulse Ox 98.3 F 83 18 129/90 H 96 08/19/17 12:13 08/19/17 12:13 08/19/17 12:13 08/19/17 12:13 08/19/17 12:13
[2017-08-19 13:22] LABS: APPEARANCE,URINE CLEAR; BILIRUBIN,URINE NEGATIVE (NEGATIVE); GLUCOSE, URINE NEGATIVE (NEGATIVE); KETONES,URINE NEGATIVE (NEGATIVE); LEUKOCYTE ESTERASE,URINE NEGATIVE (NEGATIVE); NITRITE,URINE NEGATIVE (NEGATIVE); PROTEIN,URINE NEGATIVE (NEGATIVE); URINE SPECIFIC GRAVITY 1.025
[2017-08-19 13:36] LABS: URINE METHADONE SCREEN NEGATIVE; URINE OPIATES LOW NEGATIVE; URINE PHENCYCLIDINE SCREEN NEGATIVE
[2017-08-19 13:37] LABS: URINE BARBITURATES SCREEN NEGATIVE
[2017-08-19 14:00] LABS: ABSOLUTE BASOPHILS # (AUTO) 0.1 10^3/uL (0.0-0.2); ABSOLUTE EOSINOPHILS # (AUTO) 0.2 10^3/uL (0.0-0.6); ABSOLUTE LYMPHOCYTES (AUTO) 2.9 10^3/uL (0.5-4.7); ABSOLUTE NEUT (AUTO) 6.6 10^3/uL (1.7-8.2); BASOPHILS % (AUTO) 1.1 % (0-2); EOSINOPHILS % (AUTO) 1.6 % (0-6); HEMATOCRIT 50.4 % (37.9-51.0); HEMOGLOBIN 17.3 g/dL (13.5-17.0); HGB HCT DIFFERENCE 1.5; LYMPHOCYTES % (AUTO) 26.8 % (13-45); MEAN CORPUSCULAR HEMOGLOBIN 31.5 pg (27.0-33.4); MEAN CORPUSCULAR HGB CONC 34.4 g/dL (32.0-36.0); MEAN CORPUSCULAR VOLUME 92 fl (80-97); MONOCYTES % (AUTO) 9.2 % (3-13); SEGMENTED NEUTROPHILS % (AUTO) 61.3 % (42-78); WHITE BLOOD COUNT 10.8 10^3/uL (4.0-10.5)
[2017-08-19 14:15] LABS: ALANINE AMINOTRANSFERASE 479 U/L (21-72); ALBUMIN 4.9 g/dL (3.5-5.0); ALKALINE PHOSPHATASE 124 U/L (38-126); ANION GAP 15 (5-19); ASPARTATE AMINO TRANSFERASE 158 U/L (17-59); BILIRUBIN,DIRECT 0.8 mg/dL (0.0-0.4); BLOOD UREA NITROGEN 15 mg/dL (7-20); CALCIUM 9.9 mg/dL (8.4-10.2); CARBON DIOXIDE 26 mmol/L (22-30); CHLORIDE 102 mmol/L (98-107); CREATININE RESULT 0.99 mg/dL (0.52-1.25); GLUCOSE 100 mg/dL (75-110); LIPASE 515.6 U/L (23-300); POTASSIUM 4.6 mmol/L (3.6-5.0); SODIUM 142.6 mmol/L (137-145); TOTAL PROTEIN 7.9 g/dL (6.3-8.2)
--- NOTE | 2017-08-19 14:19 | RADIOLOGY REPORT (SQ) ---
EXAM DESCRIPTION: U/S ABDOMEN LIMITED W/O DOP COMPLETED DATE/TIME: 08/19/2017 2:02 pm REASON FOR STUDY: ruq pain COMPARISON: None. TECHNIQUE: Dynamic and static grayscale images acquired of the abdomen and recorded on PACS. Additio nal selected color Doppler and spectral images recorded. LIMITATIONS: None. FINDINGS: PANCREAS: No masses. Visualized pancreatic duct normal caliber. LIVER: No masses. Echotexture normal. LIVER VASCULATURE: Normal directional flow of the main portal vein and hepatic veins. GALLBLADDER: No stones. Normal wall thickness. No pericholecystic fluid. ULTRASOUND-DETECTED SANABRIA'S SIGN: Negative. INTRAHEPATIC DUCTS AND COMMON DUCT: CBD and intrahepatic ducts normal caliber. No filling defects. INFERIOR VENA CAVA: Normal flow. AORTA: No aneurysm. RIGHT KIDNEY: Normal size. Normal echogenicity. No solid or suspicious masses. No hydronephrosis. No calcifications. PERITONEAL AND RIGHT PLEURAL SPACE: No ascites or effusions. OTHER: No other significant findings. IMPRESSION: NORMAL RIGHT UPPER QUADRANT ULTRASOUND. TECHNICAL DOCUMENTATION: JOB ID: [id number] [employer]- All Rights Reserved
--- NOTE | 2017-08-19 15:12 | ER Document Report ---
ED GI/ - General Chief Complaint: Abdominal Pain Stated Complaint: ABDOMINAL PAIN Time Seen by Provider: 08/19/17 12:41 Notes: Patient continues to have pain in his right upper quadrant. This is the patient 's fourth visit in the month of July for this same pain. He had a CT scan of his abdomen a week ago which was basically normal without any acute findings. He continues to have the pain in the right upper quadrant. He said his been nauseated and yesterday he vomited. Has had some diarrhea, as well. Says he had fever last night, but not currently. During patient's visit here last week, his liver function studies were found to be abnormal high and he had testing done that showed that he is positive for hepatitis C. Also, patient has a history of drug abuse. Was treated here sometime this year for heroin withdrawal. His drug screen from here a couple weeks ago was positive for cocaine. Patient says he has had an appendectomy at [facility] in [place] a few years ago. His CT scan from here 1 week ago says his "appendix normal". TRAVEL OUTSIDE OF THE [place] IN LAST 30 DAYS: No - Related Data Allergies/Adverse Reactions: naproxen Allergy (Verified 08/19/17 12:17) Penicillins Allergy (Verified 08/19/17 12:17) Sulfa (Sulfonamide Antibiotics) Allergy (Verified 08/19/17 12:17) sulfamethoxazole [From Bactrim] Allergy (Verified 08/19/17 12:17) tramadol HCl [From Ultram] Allergy (Verified 08/19/17 12:17) trimethoprim [From Bactrim] Allergy (Verified 08/19/17 12:17) Past Medical History - Social History Smoking Status: Current Every Day Smoker Frequency of alcohol use: None Drug Abuse: Cocaine, Heroin, Marijuana Family History: Reviewed & Not Pertinent Patient has suicidal ideation: No Patient has homicidal ideation: No Pulmonary Medical History: Reports: Hx Asthma GI Medical History: Reports: Hx Diverticulitis, Hx Gastroesophageal Reflux Disease, Hx Ulcerative Colitis, Hx Colonoscopy, Hx Endoscopy Musculoskeltal Medical History: Reports Hx Arthritis, Reports Hx Musculoskeletal Deformity - Chronic back pain and herniated disc according to the patient, Reports Hx Musculoskeletal Trauma Psychiatric Medical History: Reports: Hx Depression Past Surgical History: Reports: Hx Abdominal Surgery - L inguinal hernia repair , Hx Appendectomy - CT of the abdomen and pelvis done here 6 days ago says "appendix normal", Hx Inguinal Hernia - Left - Immunizations Immunizations up to date: Yes Hx Diphtheria, Pertussis, Tetanus Vaccination: Yes - 2011 Review of Systems - Review of Systems Notes: REVIEW OF SYSTEMS: CONSTITUTIONAL : Denies fever. EENT: Denies eye, ear, nose or mouth or throat pain or other symptoms. CARDIOVASCULAR: Denies chest pain. RESPIRATORY: Denies cough, chest congestion, or shortness of breath. GASTROINTESTINAL: See HPI. GENITOURINARY: Denies difficulty or painful urinating, urinary frequency, blood in urine. MUSCULOSKELETAL: Denies back or neck pain. Denies joint pain or swelling. SKIN: Denies rash or skin lesions. NEUROLOGICAL: Denies LOC or altered mental status. Denies headache. Denies sensory loss or motor deficits. ALL OTHER SYSTEMS REVIEWED AND NEGATIVE. Physical Exam - Vital signs Vitals: Temp Pulse Resp BP Pulse Ox 98.3 F 83 18 129/90 H 96 08/19/17 12:13 08/19/17 12:13 08/19/17 12:13 08/19/17 12:13 08/19/17 12:13 Interpretation: Normal - Notes Notes: PHYSICAL EXAMINATION: GENERAL: Well-appearing, in no acute distress. Vital signs are all normal. HEAD: Atraumatic, normocephalic. No scleral icterus. ENT: oropharynx clear without exudates. Moist mucous membranes. NECK: Normal range of motion, supple. LUNGS: Breath sounds clear and equal bilaterally. HEART: Regular rate and rhythm without murmurs. ABDOMEN: Soft, tender right upper quadrant, but no guarding or rebound. BACK: No tenderness throughout entire back. EXTREMITIES: Normal range of motion without pain. NEUROLOGICAL: Normal speech, normal gait. Normal sensory, motor, and reflex exams. Awake, alert, and oriented x3. Cranial nerves normal. PSYCH: Normal mood, normal affect. SKIN: Warm, dry, no rashes. Course - Re-evaluation Re-evalutation: 08/19/17 15:20 Workup is once again essentially completely normal. Patient's liver function tests have been trending downward significantly since they were first detected to be elevated earlier this month. WBC is only 0.3 above the upper range of normal. Patient says that he was only able to get relief with Dilaudid, which I gave him when he was here a week ago. He says he is allergic to NSAIDs and Motrin and becomes nauseated or sick on his stomach when he takes them. He does not break out in hives, does not have swelling of the mucous membranes of his mouth or eyes, does not develop hives, does not have wheezes. I told him I do not think that sounds like an allergic reaction and he should try taking the NSAIDs to see if he can get pain relief from them. Patient says he gets swelling when he takes Ultram and I told him not to take anymore Ultram. I advised the patient that neither I nor any of the other physicians will be providing him with prescriptions for controlled substances in the future unless he has truly objective positive findings that justify giving those medicines. I reiterated to the patient the need for being safe about having blood contact or other fluid contact with other persons. Advised him that hepatitis C is very easily spread by sexual contact, sharing needles, etc. Patient was advised to follow-up with a local provider to get into some treatment for his newly diagnosed hepatitis C. - Vital Signs Vital signs: Temp Pulse Resp BP Pulse Ox 98.6 F 57 L 18 130/63 H 100 08/19/17 14:34 08/19/17 14:34 08/19/17 12:13 08/19/17 14:34 08/19/17 14:34 - Laboratory Result Diagrams: 08/19/17 13:35 08/19/17 13:35 Laboratory results interpreted by me: 08/19/17 08/19/17 08/19/17 13:05 13:35 13:35 WBC 10.8 H Hgb 17.3 H Total Bilirubin 2.0 H Direct Bilirubin 0.8 H AST 158 H ALT 479 H Lipase 515.6 H Urine Urobilinogen 2.0 H Discharge - Discharge Clinical Impression: Right upper quadrant abdominal pain Condition: Stable Disposition: HOME, SELF-CARE Additional Instructions: ABDOMINAL PAIN: There are many causes of abdominal pain. Pain can mean a serious problem requiring surgery (such as appendicitis). It can also be an innocent problem that goes away on its own (such as a viral infection). Often, time must pass to determine the cause of pain. The physician does not feel that hospitalization is necessary, at present. Things may change within the next 24 hours. Call the doctor or come back for re- examination if any problems occur, such as: (1) Pain that becomes more severe, steady, or becomes concentrated in one specific area. Also, pain that is more severe with movement or coughing. (2) Vomiting that persists or becomes more frequent. (3) Blood in the vomitus, urine, or bowel movements. Blood in the stool may have a tarry or black appearance. (4) Shaking chills or fever greater than 100 degrees F. (5) The abdomen becomes more distended or swollen. (6) Bowel movements cease. (7) Failure to improve as expected. NORMAL EXAM AND WORKUP: At this time, your examination and workup show no significant abnormality. No significant abnormal physical findings are noted. All laboratory, EKG, and imaging (x-ray, CT scans, ultrasound) studies that were ordered show no significant abnormality. Although your examination and all studies that were ordered showed no significant abnormal finding, there are no examinations and no studies that are 100% accurate. There is always the possibility that some abnormality could exist and not be detected with physical examination or within the limits and capabilities of laboratory and other studies. You should return or follow up as you were instructed on your visit today for further evaluation if your symptoms do not resolve. ANTINAUSEA MEDICATION: You have been given a medication to suppress nausea and vomiting. This type of medication can be given as a shot, pill, or suppository. It will usually last for many hours. Pills and shots usually last six to eight hours, suppositories last about 12 hours. For the typical illness, only one or two doses of the medication may be necessary. Mild lightheadedness may occur. This type of medicine can cause drowsiness. Do not drive or operate dangerous machinery while under its influence. Do not mix with alcohol. See your doctor at once if you have muscle spasms or tightness, or uncontrollable motions (particularly of the neck, mouth, or jaw). Persistent vomiting or severe lightheadedness should also be evaluated by the physician. Ibuprofen Ibuprofen is an excellent, safe drug for pain control. In addition, it has potent antiinflammatory effects which are beneficial, especially in the treatment of injuries, arthritis, or tendonitis. It's best to take ibuprofen with food. Persons with ulcer disease or allergy to aspirin should notify their physician of this before taking ibuprofen. Take the medication exactly as prescribed. Don't take additional doses unless instructed to do so by your doctor. If you develop wheezing, shortness of breath, hives, faintness, stomach pain, vomiting, or dark black stools, return for re-evaluation at once. Becoming sick on his stomach does not sound like you have an allergy to NSAIDs and Motrin so I would recommend you take them for your current pain. There are no findings that would indicate the need for prescription pain medications. Chronic Pain Control Stress, inactivity, and depression make pain more severe regardless of the cause of the pain. Stress and poor physical condition can cause pain such as headaches and backache. Relaxation: Rest in a quiet place with your eyes closed for 20 minutes twice daily. Concentrate on a pleasant image, or simply "feel" your breathing. Clear your mind. Stress management: Deal with your "stressors." Either take action, or eliminate the stressor from your life. Don't let things hang over you. Accept those things you can't change. Nutrition: Eat small, balanced meals -- don't skip, don't overeat. Meals should be high-carbohydrate, low-sugar, low-fat. Exercise: Exercise helps painful conditions and eases stress. Get 30 minutes of moderate exercise, five days a week. Do an activity that does not flare your pain. Precautions: Pain which continues to disrupt daily activities, or which changes in nature, requires a medical evaluation. Pain Clinic referral is available. We do not manage chronic pain in the Emergency Department. We will try to appropriately help you through an acute flare of your chronic painful condition , but for on-going chronic pain that does not improve, you will need to see your private doctor or paint mixer hand. We do not provide repeated medication management of chronic painful conditions. If you wish, we can provide the name of local pain management physicians. FOLLOW-UP CARE: If you have been referred to a physician for follow-up care, call the physician s office for an appointment as you were instructed or within the next two days. If you experience worsening or a significant change in your symptoms, notify the physician immediately or return to the Emergency Department at any time for re-evaluation. Prescriptions: Promethazine HCl [Phenergan 25 mg Tablet] 1 - 2 tab PO Q6HP PRN #15 tablet PRN Reason:
[2017-08-19 16:14] VITALS: BP 137/82
== END 2017-08-19 15:25 | disposition home or self-care (01) ==
LOC: ER 12:02
DX: R10.11 Right upper quadrant pain (principal); R19.7 Diarrhea, unspecified; R50.9 Fever, unspecified; F17.200 Nicotine dependence, unspecified, uncomplicated
CPT/HCPCS: 99284; 96361; 96374; 36415; 83690; 85025; 80053; 81001; 80307; 76705; J3490; J2405; J7030

== ENCOUNTER 2019-07-22 17:23 | Emergency (ER) | payer MEDICAID ==
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
== END 2019-07-22 19:11 | disposition left against medical advice (07) ==
LOC: ER 17:23
DX: S09.93XA Unspecified injury of face, initial encounter (principal); S01.81XA Laceration without foreign body of other part of head, initial encounter; R51 Headache; Y04.2XXA Assault by strike against or bumped into by another person, initial encounter; F17.200 Nicotine dependence, unspecified, uncomplicated; Z88.0 Allergy status to penicillin; Z88.2 Allergy status to sulfonamides

== ENCOUNTER 2019-09-30 16:49 | Emergency (ER) | payer MEDICAID, OTHER ==
[2019-09-30 17:18] LABS: ABSOLUTE BASOPHILS # (AUTO) 0.1 10^3/uL (0.0-0.2); ABSOLUTE EOSINOPHILS # (AUTO) 0.2 10^3/uL (0.0-0.6); ABSOLUTE LYMPHOCYTES (AUTO) 2.5 10^3/uL (0.5-4.7); ABSOLUTE MONOCYTES (AUTO) 0.7 10^3/uL (0.1-1.4); ABSOLUTE NEUT (AUTO) 5.1 10^3/uL (1.7-8.2); BASOPHILS % (AUTO) 1.1 % (0-2); HEMATOCRIT 42.2 % (37.9-51.0); HEMOGLOBIN 14.5 g/dL (13.5-17.0); MEAN CORPUSCULAR HEMOGLOBIN 32.5 pg (27.0-33.4); MEAN CORPUSCULAR HGB CONC 34.4 g/dL (32.0-36.0); MEAN CORPUSCULAR VOLUME 94 fl (80-97); MONOCYTES % (AUTO) 8.2 % (3-13); PLATELET COUNT 207 10^3/uL (150-450); RED BLOOD COUNT 4.47 10^6/uL (4.35-5.55); RED CELL DISTRIBUTION WIDTH 13.3 % (11.5-14.0); SEGMENTED NEUTROPHILS % (AUTO) 59.7 % (42-78); TOTAL CELLS COUNTED % (AUTO) 100 %; WHITE BLOOD COUNT 8.6 10^3/uL (4.0-10.5)
[2019-09-30 17:30] LABS: ALBUMIN 3.5 g/dL (3.5-5.0); ALKALINE PHOSPHATASE 76 U/L (38-126); ANION GAP 11 (5-19); ASPARTATE AMINO TRANSFERASE 187 U/L (17-59); BILIRUBIN,DIRECT 0.1 mg/dL (0.0-0.4); BILIRUBIN,TOTAL 0.8 mg/dL (0.2-1.3); BLOOD UREA NITROGEN 12 mg/dL (7-20); CALCIUM 9.1 mg/dL (8.4-10.2); CARBON DIOXIDE 26 mmol/L (22-30); CHLORIDE 103 mmol/L (98-107); CREATINE KINASE 98 U/L (55-170); GLUCOSE 93 mg/dL (75-110); POTASSIUM 4.2 mmol/L (3.6-5.0); TOTAL PROTEIN 6.7 g/dL (6.3-8.2)
[2019-09-30 17:42] LABS: CREATINE KINASE MB 0.72 ng/mL (<4.55)
[2019-09-30 17:44] LABS: TROPONIN I < 0.012 ng/mL
--- NOTE | 2019-09-30 18:04 | ER Document Report ---
ED Medical Screen (RME) - General Chief Complaint: Chest Pain Stated Complaint: RAPID HEART RATE Time Seen by Provider: 09/30/19 17:43 TRAVEL OUTSIDE OF THE [place] IN LAST 30 DAYS: Yes - HPI Notes: 09/30/19 18:02 39-year-old male presents to the emergency room via [facility]rotechnician[facility] department due to the fact he is incarcerated for complaints of sudden onset chest pain that started at 4 PM today, states he felt left-sided pressure that was sharp and stabbing, he was given 3 nitroglycerin which did resolve his sharp stabbing pain although he does feel some pressure to his chest. Patient states he has never had chest pain before. Was given baby aspirin while at the alf center. Reports mother and father both had a nonfatal heart attack in their 40s. Patient is half a pack a day smoker for the last 20 years. Denies any shortness of breath, numbness or tingling down arms legs, headache, fevers chills, lightheadedness, nausea vomiting or diarrhea. I have greeted and performed a rapid initial assessment of this patient. A comprehensive ED assessment and evaluation of the patient, analysis of test results and completion of the medical decision making process will be conducted by additional ED providers. PHYSICAL EXAMINATION: GENERAL: Well-appearing, well-nourished and in no acute distress. HEAD: Atraumatic, normocephalic. EYES: Pupils equal round extraocular movements intact, conjunctiva are normal. NECK: Normal range of motion LUNGS: No respiratory distress CV: s1, s2 regular Musculoskeletal: Normal range of motion NEUROLOGICAL: Normal speech, normal gait. PSYCH: Normal mood, normal affect. SKIN: Warm, Dry, normal turgor, no rashes or lesions noted. - Related Data Allergies/Adverse Reactions: naproxen Allergy (Verified 08/19/17 12:17) Penicillins Allergy (Verified 08/19/17 12:17) Sulfa (Sulfonamide Antibiotics) Allergy (Verified 08/19/17 12:17) sulfamethoxazole [From Bactrim] Allergy (Verified 08/19/17 12:17) tramadol HCl [From Ultram] Allergy (Verified 08/19/17 12:17) trimethoprim [From Bactrim] Allergy (Verified 08/19/17 12:17) Past Medical History - Social History Chew tobacco use (# tins/day): No Frequency of alcohol use: Occasional Drug Abuse: Heroin, Marijuana, Methamphetamine Family history: Hypertension - Past Medical History Cardiac Medical History: Denies: Hx Coronary Artery Disease, Hx Heart Attack, Hx Hypertension Pulmonary Medical History: Reports: Hx Asthma Denies: Hx Bronchitis, Hx COPD, Hx Pneumonia Neurological Medical History: Denies: Hx Cerebrovascular Accident, Hx Seizures Renal/ Medical History: Denies: Hx Peritoneal Dialysis GI Medical History: Reports: Hx Diverticulitis, Hx Gastroesophageal Reflux Disease, Hx Ulcerative Colitis, Hx Colonoscopy, Hx Endoscopy Musculoskeltal Medical History: Reports Hx Arthritis, Reports Hx Musculoskeletal Deformity - Chronic back pain and herniated disc according to the patient, Reports Hx Musculoskeletal Trauma Psychiatric Medical History: Reports: Hx Depression Past Surgical History: Reports: Hx Abdominal Surgery - L inguinal hernia repair, Hx Appendectomy - CT of the abdomen and pelvis done here 6 days ago says "appendix normal", Hx Inguinal Hernia - Left - Immunizations Immunizations up to date: Yes Hx Diphtheria, Pertussis, Tetanus Vaccination: Yes - 2011 Physical Exam - Vital signs Vitals: Temp Pulse Resp BP Pulse Ox 97.8 F 94 16 113/73 98 09/30/19 16:49 09/30/19 16:49 09/30/19 16:49 09/30/19 16:49 09/30/19 16:49 Course - Vital Signs Vital signs: Temp Pulse Resp BP Pulse Ox 98.1 F 94 17 113/73 98 09/30/19 17:00 09/30/19 16:49 09/30/19 17:02 09/30/19 17:01 09/30/19 17:02 - Laboratory Result Diagrams: 09/30/19 17:00 09/30/19 17:00 Laboratory results interpreted by me: 09/30/19 17:00 AST 187 H
[2019-09-30 18:49] VITALS: BP 114/89
--- NOTE | 2019-09-30 20:54 | EKG REPORT ---
SEVERITY:- NORMAL ECG - SINUS RHYTHM : Confirmed by: Gordon Posadas MD 30-Sep-2019 20:53:12
== END 2019-09-30 18:45 | disposition left against medical advice (07) ==
LOC: ER 16:49
DX: R07.89 Other chest pain (principal); F12.10 Cannabis abuse, uncomplicated; F11.10 Opioid abuse, uncomplicated; F15.10 Other stimulant abuse, uncomplicated; J45.909 Unspecified asthma, uncomplicated; F17.200 Nicotine dependence, unspecified, uncomplicated; Z88.8 Allergy status to other drugs, medicaments and biological substances; Z88.0 Allergy status to penicillin; Z88.2 Allergy status to sulfonamides; Z88.1 Allergy status to other antibiotic agents; Z88.6 Allergy status to analgesic agent; Z82.49 Family history of ischemic heart disease and other diseases of the circulatory system; Z53.20 Procedure and treatment not carried out because of patient's decision for unspecified reasons
CPT/HCPCS: 36415; 80053; 82550; 82553; 84484; 85025; 93005; 93010; 99281

== ENCOUNTER 2020-01-11 09:02 | Emergency (ER) | payer SELFPAY ==
--- NOTE | 2020-01-11 09:21 | ER Document Report ---
ED Medical Screen (RME) - General Stated Complaint: POSSIBLE ABSCESS Time Seen by Provider: 01/11/20 09:17 Notes: Patient is a 39-year-old male who presents to the emergency department with a chief complaint of an abscess to his right shoulder and the left occiput area. Patient states that he noticed the abscess on his shoulder about 5 days ago. He attempted to squeeze it multiple times, but states, "nothing has come out." Patient is requesting to be sedated. He denies any fevers, body aches, or chills. Exam: Large abscess noted to right posterior shoulder with multiple pustules. I have greeted and performed a rapid initial assessment of this patient. A comprehensive ED assessment and evaluation of the patient, analysis of test results and completion of medical decision making process will be conducted by an additional ED providers. TRAVEL OUTSIDE OF THE [place] IN LAST 30 DAYS: Yes - Related Data Allergies/Adverse Reactions: naproxen Allergy (Verified 08/19/17 12:17) Penicillins Allergy (Verified 08/19/17 12:17) Sulfa (Sulfonamide Antibiotics) Allergy (Verified 08/19/17 12:17) sulfamethoxazole [From Bactrim] Allergy (Verified 08/19/17 12:17) tramadol HCl [From Ultram] Allergy (Verified 08/19/17 12:17) trimethoprim [From Bactrim] Allergy (Verified 08/19/17 12:17) Past Medical History - Social History Family history: Hypertension - Past Medical History Cardiac Medical History: Denies: Hx Coronary Artery Disease, Hx Heart Attack, Hx Hypertension Pulmonary Medical History: Reports: Hx Asthma Denies: Hx Bronchitis, Hx COPD, Hx Pneumonia Neurological Medical History: Denies: Hx Cerebrovascular Accident, Hx Seizures Renal/ Medical History: Denies: Hx Peritoneal Dialysis GI Medical History: Reports: Hx Diverticulitis, Hx Gastroesophageal Reflux Disea se, Hx Ulcerative Colitis, Hx Colonoscopy, Hx Endoscopy Musculoskeltal Medical History: Reports Hx Arthritis, Reports Hx Musculoskeletal Deformity - Chronic back pain and herniated disc according to the patient, Reports Hx Musculoskeletal Trauma Psychiatric Medical History: Reports: Hx Depression Past Surgical History: Reports: Hx Abdominal Surgery - L inguinal hernia repair, Hx Appendectomy - CT of the abdomen and pelvis done here 6 days ago says "appendix normal", Hx Inguinal Hernia - Left - Immunizations Immunizations up to date: Yes Hx Diphtheria, Pertussis, Tetanus Vaccination: Yes - 2011 Physical Exam - Vital signs Vitals: Temp Pulse Resp BP Pulse Ox 98.7 F 105 H 18 140/91 H 97 01/11/20 09:06 01/11/20 09:06 01/11/20 09:06 01/11/20 09:06 01/11/20 09:06 Course - Vital Signs Vital signs: Temp Pulse Resp BP Pulse Ox 98.7 F 105 H 18 140/91 H 97 01/11/20 09:06 01/11/20 09:06 01/11/20 09:06 01/11/20 09:06 01/11/20 09:06
[2020-01-11] MEDS ORDERED: LIDOCAINE 1% INJ-PF (10 MG/ML) 30 ML SDV INJ ONE (09:27)
[2020-01-11] MEDS ORDERED: HYDROCODONE/ACETAMINOPHEN 5-325 MG TABLET PO ONE (09:29)
[2020-01-11] MEDS ORDERED: VANCOMYCIN HCL INJ 1000 MG VIAL IV ONE (09:58)
[2020-01-11] MEDS ORDERED: CLINDAMYCIN 900 MG/D5W RTU 900 MG/50 ML RTUPB IV ONE (10:02)
--- NOTE | 2020-01-11 10:08 | ER Document Report ---
Entered by TAMY AZUL SCRIBE 01/11/20 0959 Acting as scribe for:OSMIN ZULUAGA, DO ED Skin Rash/Insect Bite/Abscs - General Chief Complaint: Abscess Stated Complaint: POSSIBLE ABSCESS Time Seen by Provider: 01/11/20 09:17 Information source: Patient Notes: This 39-year-old male patient presents to the emergency department today with complaints of an abscess to his right upper back. Patient states the area has been red and swollen and has increased in size for the last 4 days. Patient states he "tried to pop it" but was unsuccessful. Patient states he has had multiple abscesses in the past but "does not have MRSA". TRAVEL OUTSIDE OF THE [place] IN LAST 30 DAYS: Yes - Related Data Allergies/Adverse Reactions: naproxen Allergy (Verified 01/11/20 10:09) Penicillins Allergy (Verified 01/11/20 10:09) Sulfa (Sulfonamide Antibiotics) Allergy (Verified 01/11/20 10:09) sulfamethoxazole [From Bactrim] Allergy (Verified 01/11/20 10:09) tramadol HCl [From Ultram] Allergy (Verified 01/11/20 10:09) trimethoprim [From Bactrim] Allergy (Verified 01/11/20 10:09) Past Medical History - General Information source: Patient - Social History Smoking Status: Current Every Day Smoker Cigarette use (# per day): Yes Frequency of alcohol use: None Drug Abuse: None Lives with: Family Family History: Reviewed & Not Pertinent Patient has suicidal ideation: No Patient has homicidal ideation: No Pulmonary Medical History: Reports: Hx Asthma GI Medical History: Reports: Hx Diverticulitis, Hx Gastroesophageal Reflux Disease, Hx Ulcerative Colitis, Hx Colonoscopy, Hx Endoscopy Musculoskeletal Medical History: Reports Hx Arthritis, Reports Hx Musculoskeletal Deformity - Chronic back pain and herniated disc according to the patient, Reports Hx Musculoskeletal Trauma Psychiatric Medical History: Reports: Hx Depression Past Surgical History: Reports: Hx Abdominal Surgery - L inguinal hernia repair, Hx Inguinal Hernia - Left - Immunizations Immunizations up to date: Yes Hx Diphtheria, Pertussis, Tetanus Vaccination: Yes - 2011 Review of Systems - Review of Systems Constitutional: No symptoms reported EENT: No symptoms reported Cardiovascular: No symptoms reported Respiratory: No symptoms reported Gastrointestinal: No symptoms reported Genitourinary: No symptoms reported Male Genitourinary: No symptoms reported Musculoskeletal: No symptoms reported Skin: See HPI, Lesions Hematologic/Lymphatic: No symptoms reported Neurological/Psychological: No symptoms reported -: Yes All other systems reviewed and negative Physical Exam - Vital signs Vitals: Temp Pulse Resp BP Pulse Ox 98.7 F 105 H 18 140/91 H 97 01/11/20 09:06 01/11/20 09:06 01/11/20 09:06 01/11/20 09:06 01/11/20 09:06 - Notes Notes: Physical Exam: General: Alert, appears well. HEENT: Normocephalic. Atraumatic. PERRL. Extraocular movements intact. Oropharynx clear. Neck: Supple. Non-tender. Respiratory: No respiratory distress. Clear and equal breath sounds bilaterally. Cardiovascular: Regular rate and rhythm. Abdominal: Normal Inspection. Non-tender. No distension. Normal Bowel Sounds. Back: See skin exam Extremities: Moves all four extremities. Upper extremities: Normal inspection. Normal ROM. Lower extremities: Normal inspection. No edema. Normal ROM. Neurological: Normal cognition. AAOx4. Normal speech. Psychological: Normal affect. Normal Mood. Skin: Firm, hard, indurated area over right upper back. The eschar measures 1.5 cm in diameter. The surrounding erythema measures 6cm x 6cm and it borders the scapula superiorly, anteriorly goes to the edge of the trapezius muscle, it does not quite reach the spinous processes medially. Course - Re-evaluation Re-evalutation: 01/11/20 10:08 MDM 39 year old with h/o abcess in the past but tells me no to MRSA infections in the past has a MRSA appearing area of cellulitis to right shoulder area. No fever and denies drug use. Several small healing areas size of small pustules low back. Believe this to be MRSA. As the largest area in indurated without any area of fluctuence will treat agressively here medical - iv antibiotics and rec recheck tomorrow. Reports seizures with sulfa. Will DC on clindamycin and educated not to try and break this open at home as he has attempted unsuccessfully. At this point, I do not feel an US is needed/ necessary and while I have considered providing this gentleman with narcotics his previous issues with narcotic addiction make this not practical at this time, in my opinion. He is noted to have a leukocytosis and while this is not specific for his presentation here, it certainly may be related. Due to this he has been cautioned to return here for recheck in 24 hours and expressed understanding. - Vital Signs Vital signs: Temp Pulse Resp BP Pulse Ox 98.7 F 105 H 18 140/91 H 97 01/11/20 09:06 01/11/20 09:06 01/11/20 09:06 01/11/20 09:06 01/11/20 09:06 - Laboratory Result Diagrams: 01/11/20 10:24 01/11/20 10:24 Laboratory results interpreted by me: 01/11/20 01/11/20 10:24 10:24 WBC 17.3 H Absolute Neuts (auto) 12.9 H Glucose 140 H AST 144 H ALT 327 H Discharge - Discharge Clinical Impression: Cellulitis Qualifiers: Site of cellulitis: trunk Site of cellulitis of trunk: back Qualified Code(s): L03.312 - Cellulitis of back [any part except buttock] Condition: Good Disposition: HOME, SELF-CARE Instructions: Family Physicians / Practices, MRSA Cellulitis ([facility]) Additional Instructions: Have this wound rechecked tomorrow. Take the medicine as directed. Return here for worsening pain or other concerns. Recheck in this ED or your primary doctor or urgent care. Prescriptions: Clindamycin HCl 300 mg PO TID #30 capsule Ibuprofen [Motrin 600 mg Tablet] 600 mg PO TID #30 tablet Forms: Elevated Blood Pressure I personally performed the services described in the documentation, reviewed and edited the documentation which was dictated to the scribe in my presence, and it accurately records my words and actions.
[2020-01-11 10:44] LABS: ABSOLUTE BASOPHILS # (AUTO) 0.1 10^3/uL (0.0-0.2); ABSOLUTE EOSINOPHILS # (AUTO) 0.1 10^3/uL (0.0-0.6); ABSOLUTE MONOCYTES (AUTO) 1.2 10^3/uL (0.1-1.4); ABSOLUTE NEUT (AUTO) 12.9 10^3/uL (1.7-8.2); BASOPHILS % (AUTO) 0.6 % (0-2); EOSINOPHILS % (AUTO) 0.8 % (0-6); HEMATOCRIT 45.8 % (37.9-51.0); HEMOGLOBIN 15.9 g/dL (13.5-17.0); LYMPHOCYTES % (AUTO) 17.1 % (13-45); MEAN CORPUSCULAR HGB CONC 34.6 g/dL (32.0-36.0); MEAN CORPUSCULAR VOLUME 92 fl (80-97); MONOCYTES % (AUTO) 6.9 % (3-13); PLATELET COUNT 245 10^3/uL (150-450); RED BLOOD COUNT 4.96 10^6/uL (4.35-5.55); RED CELL DISTRIBUTION WIDTH 13.4 % (11.5-14.0); SEGMENTED NEUTROPHILS % (AUTO) 74.6 % (42-78); TOTAL CELLS COUNTED % (AUTO) 100 %; WHITE BLOOD COUNT 17.3 10^3/uL (4.0-10.5)
[2020-01-11 11:11] LABS: ALBUMIN 3.7 g/dL (3.5-5.0); ALKALINE PHOSPHATASE 115 U/L (38-126); ANION GAP 7 (5-19); ASPARTATE AMINO TRANSFERASE 144 U/L (17-59); BILIRUBIN,DIRECT 0.2 mg/dL (0.0-0.4); BLOOD UREA NITROGEN 18 mg/dL (7-20); CALCIUM 8.9 mg/dL (8.4-10.2); CARBON DIOXIDE 26 mmol/L (22-30); CHLORIDE 104 mmol/L (98-107); GLUCOSE 140 mg/dL (75-110); POTASSIUM 4.3 mmol/L (3.6-5.0); TOTAL PROTEIN 7.5 g/dL (6.3-8.2)
[2020-01-11 12:46] VITALS: BP 124/78
== END 2020-01-11 12:41 | disposition home or self-care (01) ==
LOC: ER 09:02
DX: L03.312 Cellulitis of back [any part except buttock and flank] (principal); L02.212 Cutaneous abscess of back [any part, except buttock and flank]; Z88.0 Allergy status to penicillin; Z88.2 Allergy status to sulfonamides; Z88.8 Allergy status to other drugs, medicaments and biological substances; F17.210 Nicotine dependence, cigarettes, uncomplicated; J45.909 Unspecified asthma, uncomplicated
CPT/HCPCS: 99283; 96365; 96367; 36415; 87040; 83605; 85025; 80053; J3490 ×2; J3370